=== PATIENT | male | born 1995 | race Caucasian/White ===

== ENCOUNTER 2016-02-22 00:27 | Emergency (ER) | payer MEDICAID ==
--- NOTE | 2016-02-22 00:33 | EDPHY ---
H & P HPI/ROS: HPI CHIEF COMPLAINT: Pruritus HISTORY OF PRESENT ILLNESS: This patient very pleasant 20-year-old male denies any significant medical history except cholecystectomy and chronic back pain and asthma, presents to the emergency room with itching all over his body. He tells me he has been itching for 3 months however it has acutely gotten worse over the past 2 weeks. Tells me he cannot stop itching. does tell me that was recently in a usp. Past Medical History: Chronic back pain, asthma Past Surgical History: Cholecystectomy Social History: Denies daily use drugs alcohol tobacco products does have a history of methamphetamine abuse Family History: Noncontributory ROS REVIEW OF SYSTEMS: A comprehensive 10 point review of systems is otherwise negative aside from elements mentioned in the history of present illness. Exam Constitutional triage nursing summary reviewed, vital signs reviewed, awake/ alert. Eyes normal conjunctivae and sclera, EOMI, PERRLA. HENT normal inspection, atraumatic, moist mucus membranes, no epistaxis, neck supple/ no meningismus, no raccoon eyes. Respiratory clear to auscultation bilaterally, normal breath sounds, no respiratory distress, no wheezing. Cardiovascular rate normal, regular rhythm, no murmur, no edema, distal pulses normal. Gastrointestinal soft, non-tender, no rebound, no guarding, normal bowel sounds, no distension, no pulsatile mass. Genitourinary no CVA tenderness. Musculoskeletal no midline vertebral tenderness, full range of motion, no calf swelling, no tenderness of extremities, no meningismus, good pulses, neurovascularly intact. Skin skin diffusely excoriated throughout his entire body, it is noted that there are lesions in between his webspace of his fingers, pannus folds, waistline consistent with scabies looking rash is noted there is no purpura, petechiae or abscess or cellulitis Neurologic awake, alert and oriented x 3, AAOx3, moves all 4 extremities equally, motor intact, sensory intact, CN II-XII intact, normal cerebellar, normal vision, normal speech. Psychiatric normal mood/affect. Heme/Lymph/Immune no lymphadenopathy. Differential Diagnosis: includes but is not limited to in a particular order, scabies, liver disease causing pruritus, allergic reaction Medical Decision Making: this patient is having severe itching patient had an IV established he will see the IV Benadryl 50 mg, IV Solu-Medrol 125 mg patient most likely has severe case of scabies, this does not appear to be [place] scabies, patient be placed on permethrin. He understands return to ER if he develops worsening symptoms questions or concerns. Source: Patient - Medical/Surgical History Hx Asthma: Yes Hx Chronic Respiratory Disease: No Hx Diabetes: No Hx Cardiac Disease: No Hx Renal Disease: No Hx Cirrhosis: No Hx Alcoholism: No Hx HIV/AIDS: No Hx Splenectomy or Spleen Trauma: No Other PMH: denies - Social History Smoking Status: Current every day smoker Allergies/Adverse Reactions: No Known Allergies Allergy (Unverified 05/20/15 17:14) Home Medications: Medication Instructions Recorded Albuterol Hfa Anes Only [Proair 2 puffs IH QID PRN 05/10/15 Hfa Icu (*)] Azithromycin [Zithromax] 250 mg PO DAILY #4 tab 05/20/15 Permethrin 5% [Elimite 5%] 60 gm TP ONCE #1 cream 02/22/16 diphenhydrAMINE [Benadryl 25 MG 25 mg PO BID #20 tab 02/22/16 (*)] Departure - Departure Disposition: Home, Routine, Self-Care Clinical Impression: Pruritus, Scabies Condition: Good Instructions: Scabies (ED), Itchy Skin (ED) Additional Instructions: 1. return emergency room if he develops any worsening symptoms questions or concerns. Referrals: NONE *PRIMARY CARE P,. [Primary Care Provider] - As per Instructions [facility] [Outside] - As per Instructions Prescriptions: diphenhydrAMINE [Benadryl 25 MG (*)] 25 mg PO BID #20 tab Permethrin 5% [Elimite 5%] 60 gm TP ONCE #1 cream
[2016-02-22] MEDS ORDERED: NS 1,000 ML IV ONE (00:42)
[2016-02-22] MEDS ORDERED: methylPREDNISolone SOD SUCC 125 MG/2 ML VIAL IVP ONE (00:42)
[2016-02-22 01:10] LABS: % IMMATURE GRANULYOCYTES 0.7 % (0.0-1.1); ABSOLUTE IMMATURE GRANULOCYTES 0.07 10^3/uL (0.00-0.10); ADD DIFF? NO; ADD MORPH? NO; ADD SCAN? NO; ATYPICAL LYMPHOCYTE FLAG 10 (0-99); FRAGMENT RBC FLAG 0 (0-99); HEMATOCRIT 47.4 % (40.0-51.0); HEMOGLOBIN 16.4 g/dL (13.7-17.5); LEFT SHIFT FLG 0 (0-99); LIPEMIA HEMOLYSIS FLAG 90 (0-99); MEAN CELL HEMOGLOBIN 31.1 pg (27.9-34.1); MEAN CELL HEMOGLOBIN CONCENTR. 34.6 g/dL (32.4-36.7); MEAN CELL VOLUME 89.9 fL (81.5-99.8); MEAN PLATELET VOLUME 9.8 fL (8.7-11.7); PLATELET CLUMPS FLAG 0 (0-99); PLATELET COUNT 298 10^3/uL (150-400); RED BLOOD CELL COUNT 5.27 10^6/uL (4.40-6.38); RED CELL DISTRIBUTION WIDTH 12.9 % (11.5-15.2)
[2016-02-22] MEDS ORDERED: PERMETHRIN 5% 60 GM CREAM TP ONE (01:11)
[2016-02-22 01:36] VITALS: BP 140/79; PULSE 82; RESP 16; TEMP 98.8; O2SAT 99
[2016-02-22 01:49] LABS: ALANINE AMINOTRANSFERASE 46 IU/L (21-72); ALBUMIN 4.4 g/dL (3.5-5.0); ALKALINE PHOSPHATASE 85 IU/L (38-126); ANION GAP 13 mEq/L (8-16); ASPARTATE AMINOTRANSFERASE 25 IU/L (17-59); BILIRUBIN,TOTAL 0.6 mg/dL (0.1-1.4); CARBON DIOXIDE 26 mEq/l (22-31); CHLORIDE 105 mEq/L (97-110); CREATININE 0.8 mg/dL (0.7-1.3); GLOMERULAR FILTRATION RATE > 60; GLUCOSE 90 mg/dL (70-100); POTASSIUM 4.1 mEq/L (3.5-5.2); SODIUM 144 mEq/L (134-144); TOTAL PROTEIN 7.8 g/dL (6.3-8.2)
== END 2016-02-22 01:36 | disposition home or self-care (01) ==
DX: B86 Scabies (principal); J45.909 Unspecified asthma, uncomplicated; F17.200 Nicotine dependence, unspecified, uncomplicated
CPT/HCPCS: 96374

== ENCOUNTER 2016-02-29 21:21 | Emergency (ER) | payer MEDICAID ==
[2016-02-29 21:32] VITALS: BP 132/78; PULSE 94; RESP 17; TEMP 98.1; O2SAT 91
--- NOTE | 2016-02-29 22:15 | EDPHY ---
H & P Stated Complaint: med refill Time Seen by Provider: 02/29/16 22:04 HPI/ROS: HPI The patient presents with rash which has been present for the last 1 week which has improved but persists. It is pruritic, throughout his arms legs and torso. He was sent home from work today because he was itching so much. He does not have any fevers or chills, no nausea or vomiting. He was seen in the emergency room on February 21 for the same thing. He was given a prescription for permethrin which he used with improvement in his symptoms, however he continues to have some lesions. He lives with his mother and she has some similar lesions on her hands. REVIEW OF SYSTEMS Constitutional: No fever, no chills. Eyes: No discharge. ENT: No sore throat. Cardiovascular: No chest pain, no palpitations. Respiratory: No cough, no shortness of breath. Gastrointestinal: No abdominal pain, no vomiting. Genitourinary: No hematuria. Musculoskeletal: No back pain. Skin: + rashes. Neurological: No headache. PMHx: Asthma, low back pain Soc Hx: Works at [employer], previous methamphetamine use PHYSICAL General Appearance: Alert, no distress Eyes: Pupils equal and round no pallor or injection ENT, Mouth: Mucous membranes moist Respiratory: There are no retractions, lungs are clear to auscultation Cardiovascular: Regular rate and rhythm Gastrointestinal: Abdomen is soft and non-tender, no masses, bowel sounds normal Neurological: A&O, moves all extremities Skin: Warm and dry, multiple papules throughout arms, legs, abdomen with areas of excoriation Musculoskeletal: Neck is supple non tender Extremities: symmetrical, full range of motion Psychiatric: Patient is oriented X 3, there is no agitation Source: Patient Exam Limitations: No limitations - Personal History Current Tetanus/Diphtheria Vaccine: Yes - Medical/Surgical History Hx Asthma: Yes Hx Chronic Respiratory Disease: No Hx Diabetes: No Hx Cardiac Disease: No Hx Renal Disease: No Hx Cirrhosis: No Hx Alcoholism: No Hx HIV/AIDS: No Hx Splenectomy or Spleen Trauma: No Other PMH: PMHx: meth use, scabies. PSHx: gallbladder - Social History Smoking Status: Current every day smoker Constitutional: Initial Vital Signs Temperature (C) 36.7 C 02/29/16 21:27 Heart Rate 94 02/29/16 21:27 Respiratory Rate 17 02/28/17 21:27 Blood Pressure 132/78 H 02/29/16 21:27 O2 Sat (%) 91 L 02/29/16 21:27 O2 Delivery Mode Room Air Allergies/Adverse Reactions: No Known Allergies Allergy (Unverified 05/20/15 17:14) Home Medications: Medication Instructions Recorded Permethrin 5% [Elimite 5%] 60 gm TP ONCE #1 cream 02/22/16 Permethrin 5% [Elimite 5%] 60 gm TP ONCE #1 cream 02/29/16 Medical Decision Making Differential Diagnosis: This is a 20-year-old male who presents with a rash for the last 2 weeks, improved with permethrin but still persisting. Differential diagnosis includes scabies, bedbugs, side-effect of methamphetamine use. I will prescribe him a course of permethrin again. I told him if the rash does not completely improve after this treatment, he should follow up at [facility] for further evaluation. I do not think he has any systemic infection or signs of sepsis. Departure - Departure Clinical Impression: Rash of entire body Instructions: Scabies (ED) Additional Instructions: Please use the permethrin as prescribed. You should follow up with the [facility] if the rash continues despite this. Referrals: [facility] [Outside] - As per Instructions Prescriptions: Permethrin 5% [Elimite 5%] 60 gm TP ONCE #1 cream
== END 2016-02-29 22:22 | disposition home or self-care (01) ==
DX: R21 Rash and other nonspecific skin eruption (principal); J45.909 Unspecified asthma, uncomplicated; F17.200 Nicotine dependence, unspecified, uncomplicated

== ENCOUNTER 2016-03-10 18:10 | Emergency (ER) | payer MEDICAID ==
--- NOTE | 2016-03-10 19:00 | EDPHY ---
HPI/HX/ROS/PE/MDM Narrative: Chief complaint: Left ankle pain and swelling HPI: 20-year-old male presenting with left ankle pain status post injury he sustained 3 years ago. Patient states that he never sought medical attention at that time. Has a persistent left ankle pain. Patient states that the pain has been getting worse for the last 2-3 days and he feels that is increasingly swollen. He states his mom also noted some discoloration that ankle. He is able to weight bear but he states that it hurts to move it. Does use marijuana daily to treat his pain. No chest pain or shortness of breath. No calf pain or swelling. No periods of recent immobility. Does not have a family history of blood clots. ROS: 10 point Review of Systems is negative except as noted in the HPI. Physical exam: Gen: Awake, Alert, No Distress Ext: Left ankle does not seem particularly swollen compared to the right. There is no discoloration. There is no erythema. It is diffusely tender when I palpate but there is no obvious bony deformities. He has no calf tenderness. He is unwilling to move his left ankle secondary to pain. He has 2+ DP and PT pulses. Sensations intact in all dermatomes. Skin: no rash Neuro: CN II-XII intact, Sensation grossly intact, Strength 5/5 in bilateral upper and lower extremities ED Course: 20-year-old male with left ankle pain. No acute signs suggestive of infection. Calves are soft no risk factors referred findings suggestive of DVT. His symptoms are chronic he takes marijuana and ibuprofen for them. He has not followed up with primary care Orthopedics. Plan will be to discharge with continuing his ibuprofen at on acetaminophen. Will refer him to the [facility] for follow-up. General Time Seen by Provider: 03/10/16 18:22 Initial Vital Signs: Initial Vital Signs Temperature (C) 36.5 C 03/10/16 18:17 Heart Rate 106 H 03/10/16 18:17 Respiratory Rate 20 03/10/16 18:17 Blood Pressure 129/86 H 03/10/16 18:17 O2 Sat (%) 92 03/10/16 18:17 O2 Delivery Mode Room Air Allergies/Adverse Reactions: No Known Allergies Allergy (Verified 03/10/16 18:17) Home Medications: Medication Instructions Recorded NK [No Known Home Meds] 03/10/16 Departure - Departure Disposition: Home, Routine, Self-Care Clinical Impression: Ankle pain Condition: Good Instructions: Arthralgia (ED) Additional Instructions: You may take ibuprofen and acetaminophen for pain. Follow up with the [facility] for further evaluation. Referrals: NONE *PRIMARY CARE P,. [Primary Care Provider] - As per Instructions [facility] [Outside] - As per Instructions
[2016-03-10 19:45] VITALS: BP 154/56; PULSE 90; RESP 16; TEMP 98.1; O2SAT 94
--- NOTE | 2016-03-10 19:46 | DX ---
Ankle, Minimum Three Views Left History: Pain, trauma three years ago. Comparison: None. Findings: No acute fracture or dislocation identified. Diffuse soft tissue swelling. No widening of a nkle mortise or evidence of acute malleolar fracture. Slight deformity of the distal fibula which may be secondary to old trauma. No tibiotalar joint space narrowing. However, small dorsal tibial osteop hyte on the lateral view. Impressions: 1. No definite acute fracture. 2. 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 3. Consider additional imaging if symptoms persist, if clinically indicated.
== END 2016-03-10 19:45 | disposition home or self-care (01) ==
DX: M25.572 Pain in left ankle and joints of left foot (principal)

== ENCOUNTER 2016-04-03 09:54 | Emergency (ER) | payer MEDICAID ==
[2016-04-03 10:03] VITALS: RESP 22
[2016-04-03] MEDS ORDERED: NS 1,000 ML IV ONE ×2 (10:03→11:07)
--- NOTE | 2016-04-03 10:43 | EDPHY ---
H & P Stated Complaint: flu like symptoms and cough HPI/ROS: CHIEF COMPLAINT: Cough, flu-like symptoms HISTORY OF PRESENT ILLNESS: 3 days history of cough, congestion, body aches, headaches, chills, fever, nausea. No vomiting. No chest pain. No shortness of breath. No abdominal pain. No neck pain or stiffness. No urinary complaints. No rash. No trauma or head injury. He notes worsening symptoms over the past 2 days as they are now moderate to severe. No radiating complaints. No other associated complaints or modifying factors. No medical diagnoses. REVIEW OF SYSTEMS: Ten systems reviewed and are negative unless otherwise noted in the HPI EXAMINATION General Appearance: Alert, no distress , flu-like appearance Head: normocephalic, atraumatic Eyes: Pupils equal and round, no conjunctival pallor or injection ENT, Mouth: Mucous membranes moist . Uvula midline. No lesions or edema. Neck: Normal inspection, supple, non-tender. Painless range of motion in all planes. No meningismus. Respiratory: Scattered rhonchi. No consolidation, wheezing, crackles or diminishment. No distress. Cardiovascular: Tachycardic rate with regular rhythm. No murmur. Pulses intact distally. Gastrointestinal: Abdomen is Obese and soft and nontender. No CVA tenderness. Neurological: A&O, nonfocal, normal gait . Strength is symmetric in all limbs. Skin: Warm and dry, no rash Extremities: Nontender, no pedal edema Psychiatric: Mood and affect normal DIFFERENTIAL DIAGNOSES: Including but not limited to Influenza, viral illness, pneumonia, bronchitis MDM: 10:00 a.m. multiple complaints consistent with flu-like symptoms. Cough, congestion, nausea, headache, body aches, chills, fever. No chest pain. No shortness of breath. Examination is more consistent with viral/ influenza in any other way on the differential. His vital signs do trigger the SIRS alert during triage, and I have been notified of this. I do not feel this is related to sepsis as he does have the appearance and history of viral /influenza. We are obtaining chest x-ray, provide IV fluid resuscitation and awaiting the results of the influenza swab. 11:50 a.m. I have re-evaluated the patient. Heart rate was down to 95 to 100 beats per minute. He is positive for influenza A. Notified by RN that he was mildly hypoxic for several minutes at 87%. He has improved with 2 L nasal cannula. This was only witness for several seconds, but we will trial him on room air for a period of time to see if he remains hypoxic. We will also administer a DuoNeb treatment is he was congested, but the chest x-ray shows no evidence of pneumonia. 12:25 p.m. notified by RN that the patient had 86% on his room air P ox again. However this was very short course. In the entire interim between and currently, he is in the 90% range. I did re-evaluate the patient at this time, he is asleep at 95% on room air. When he awakes and we converse about this, he remained 95-98% on room air. Feel that these are average readings and he has primarily been well above 90% both awake and asleep. He will be discharged home with the same plan with instructions to follow up with primary care physician and to discuss the possibility of needing a sleep study as well. SUPERVISION: This patient was independently evaluated without the aide of supervising physician. Source: Patient - Personal History Current Tetanus/Diphtheria Vaccine: Yes - Medical/Surgical History Hx Asthma: Yes Hx Chronic Respiratory Disease: No Hx Diabetes: No Hx Cardiac Disease: No Hx Renal Disease: No Hx Cirrhosis: No Hx Alcoholism: No Hx HIV/AIDS: No Hx Splenectomy or Spleen Trauma: No Other PMH: PMHx: meth use, scabies. PSHx: gallbladder - Social History Smoking Status: Current every day smoker Constitutional: Initial Vital Signs Temperature (C) 100.8 F 04/03/16 09:56 Heart Rate 122 H 04/03/16 09:56 Respiratory Rate 22 H 04/03/16 09:56 Blood Pressure 135/83 H 04/03/16 09:56 O2 Sat (%) 92 04/03/16 09:56 O2 Delivery Mode Room Air O2 (L/minute) 2 Allergies/Adverse Reactions: No Known Allergies Allergy (Verified 04/03/16 09:55) Home Medications: Medication Instructions Recorded Albuterol [Proventil Inhaler HFA 1 - 2 puffs IH Q4H PRN #1 mdi 04/03/16 (*)] Ondansetron Odt [Zofran Odt 4 mg 4 mg PO Q6 PRN #12 tab 04/03/16 (*)] oxyCODONE HCL/ACETAMINOPHEN 1 each PO Q4-6PRN PRN #15 tablet 04/03/16 [Percocet 5-325 mg Tablet] Medical Decision Making - Data Points Laboratory Results: 04/03/16 10:15 Influenza Typ A,B (DFA) POSITIVE FOR FLU A H (NEGATIVE) Medications Given: Discontinued Medications Albuterol/Ipratropium (Duoneb) 3 ml IH EDNOW ONE Stop: 04/03/16 11:56 Last Admin: 04/03/16 12:10 Dose: 3 ml Sodium Chloride (Ns) 1,000 mls @ 0 mls/hr IV ONCE ONE PRN Reason: Wide Open Stop: 04/03/16 10:04 Last Admin: 04/03/16 10:10 Dose: 1,000 mls Sodium Chloride (Ns) 1,000 mls @ 0 mls/hr IV ONCE ONE PRN Reason: Wide Open Stop: 04/03/16 11:08 Last Admin: 04/03/16 11:18 Dose: 1,000 mls Departure - Departure Disposition: Home, Routine, Self-Care Clinical Impression: Influenza A Condition: Good Instructions: Influenza (ED), H1N1 Influenza (ED) Additional Instructions: Follow-up with primary care physician as listed. Return to the ER for worsening symptoms, any chest pain, shortness of breath, neck pain or stiffness Referrals: NONE *PRIMARY CARE P,. [Primary Care Provider] - As per Instructions Sharyn Bansal MD [Medical Doctor] - 1-2 days without fail (Please discuss possible sleep study as well) Stand Alone Forms: Work Excuse Prescriptions: Albuterol [Proventil Inhaler HFA (*)] 1 - 2 puffs IH Q4H PRN #1 mdi PRN Reason: Short Of Breath/Dyspnea Ondansetron Odt [Zofran Odt 4 mg (*)] 4 mg PO Q6 PRN #12 tab PRN Reason: Nausea/Vomiting, Use 1st oxyCODONE HCL/ACETAMINOPHEN [Percocet 5-325 mg Tablet] 1 each PO Q4-6PRN PRN # 15 tablet PRN Reason: Pain, Breakthrough
[2016-04-03] MEDS ORDERED: IPRATROPIUM/ALBUTEROL 3 ML DEYVIAL IH ONE (11:55)
[2016-04-03 12:51] VITALS: BP 127/65; PULSE 110; TEMP 99; O2SAT 92
== END 2016-04-03 13:00 | disposition home or self-care (01) ==
DX: J10.1 Influenza due to other identified influenza virus with other respiratory manifestations (principal); J45.909 Unspecified asthma, uncomplicated; F17.200 Nicotine dependence, unspecified, uncomplicated

== ENCOUNTER 2016-04-04 18:18 | Emergency (ER) | payer MEDICAID ==
--- NOTE | 2016-04-04 18:19 | EDPHY ---
H & P Time Seen by Provider: 04/04/16 18:19 HPI/ROS: CHIEF COMPLAINT: I can't breathe HISTORY OF PRESENT ILLNESS: Patient has been sick for 4 days with some diarrhea and a cough and wheezy and being short of breath with body aches. He was seen yesterday and diagnosed with influenza. He is currently using albuterol inhaler and oral narcotics for the pain. He presents with difficulty breathing worse with lying flat and with exertion. Symptoms are moderate. Not associated with hemoptysis or leg swelling. No chest pain. REVIEW OF SYSTEMS: Eye: no change in vision ENT: no sore throat Cardiac: no chest pain or syncope Pulmonary: HPI Abdomen: No abdominal pain or vomiting Musculoskeletal: no back pain Skin: no rash Neuro: no headache Constitutional: Fever and chills : no urinary symptoms A comprehensive 10 point review of systems is otherwise negative aside from elements mentioned in the history of present illness. PAST MEDICAL HISTORY: Attachment disorder Social history: Tobacco smoker works at [employer] Appearance: Alert and conversant, cooperative. Eyes: No scleral icterus. ENT, Mouth: Normal mucous membranes. Respiratory: Bilateral wheezing and rhonchi but speaks in full sentences. Cardiovascular: Regular rate and rhythm. Gastrointestinal: Abdomen is soft and non tender. Neurological: Alert and oriented x3. Normally conversant. Face symmetric, normal movement and sensation in all extremities. Skin: Warm and dry, no rashes. Musculoskeletal: No peripheral edema and no joint swelling. Psychiatric: Not agitated. Emergency Department course/MDM: DuoNeb and IV Solu-Medrol, chest x-ray. Not a Tamiflu candidate with 4 days of symptoms up to this point Re-examined at 7:25 p.m.. Feels bit better. S 2nd nebulizer administered. 94% on RA, start continuous nebs. Still wheezy, but not hypoxic 2120: 94% on room air, bronchospasm from influenza does not have pneumonia or sepsis. Discharged home on continued albuterol MDI and oral prednisone. Constitutional: Initial Vital Signs Temperature (C) 37.6 C 04/04/16 18:18 Heart Rate 118 H 04/04/16 18:18 Respiratory Rate 20 04/04/16 18:18 Blood Pressure 113/80 04/04/16 18:18 O2 Sat (%) 92 02/16/17 18:18 O2 Delivery Mode Room Air O2 (L/minute) 2 Allergies/Adverse Reactions: No Known Allergies Allergy (Verified 04/03/16 09:55) Home Medications: Medication Instructions Recorded Albuterol [Proventil Inhaler HFA 1 - 2 puffs IH Q4H PRN #1 mdi 04/03/16 (*)] Ondansetron Odt [Zofran Odt 4 mg 4 mg PO Q6 PRN #12 tab 04/03/16 (*)] oxyCODONE HCL/ACETAMINOPHEN 1 each PO Q4-6PRN PRN #15 tablet 04/03/16 [Percocet 5-325 mg Tablet] predniSONE [prednisone 20mg (RX)] 20 mg PO Q12 #15 tab 04/04/16 Medical Decision Making Differential Diagnosis: Differential diagnosis considered for shortness of breath including but not limited to pulmonary infectious process, bronchospasm, pulmonary embolus and congestive heart failure. - Data Points Medications Given: Discontinued Medications Albuterol (Proventil Neb) 3 ml IH EDNOW ONE Stop: 04/04/16 19:09 Last Admin: 04/04/16 19:29 Dose: 3 ml Albuterol (Proventil Neb) 12 ml IH EDNOW ONE Stop: 04/04/16 19:55 Last Admin: 04/04/16 20:25 Dose: 12 ml Albuterol/Ipratropium (Duoneb) 3 ml IH EDNOW ONE Stop: 04/04/16 18:26 Last Admin: 04/04/16 18:35 Dose: 3 ml Sodium Chloride (Ns) 1,000 mls @ 0 mls/hr IV ONCE ONE PRN Reason: Wide Open Stop: 04/04/16 18:31 Last Admin: 04/04/16 18:46 Dose: 1,000 mls Ibuprofen (Motrin) 600 mg PO EDNOW ONE Stop: 04/04/16 18:31 Last Admin: 04/04/16 18:45 Dose: 600 mg Methylprednisolone Sodium Succinate (Solu-Medrol) 125 mg IVP EDNOW ONE Stop: 04/04/16 18:26 Last Admin: 04/04/16 18:37 Dose: 125 mg Departure - Departure Disposition: Home, Routine, Self-Care Clinical Impression: Influenza A, Bronchospasm Condition: Good Instructions: Influenza (ED) Referrals: [facility],. [Clinic] - As per Instructions Prescriptions: predniSONE [prednisone 20mg (RX)] 20 mg PO Q12 #15 tab
[2016-04-04] MEDS ORDERED: IPRATROPIUM/ALBUTEROL 3 ML DEYVIAL IH ONE (18:25)
[2016-04-04] MEDS ORDERED: methylPREDNISolone SOD SUCC 125 MG/2 ML VIAL IVP ONE (18:25)
[2016-04-04] MEDS ORDERED: NS 1,000 ML IV ONE (18:30)
[2016-04-04] MEDS ORDERED: IBUPROFEN 600 MG TAB PO ONE (18:30)
[2016-04-04] MEDS ORDERED: ALBUTEROL 3 ML DEYVIAL IH ONE ×2 (19:08→19:54)
[2016-04-04] MEDS ORDERED: IPRATROPIUM/ALBUTEROL 3 ML DEYVIAL ONE (19:25)
[2016-04-04] MEDS ORDERED: ALBUTEROL 3 ML DEYVIAL ONE (19:27)
[2016-04-04 20:36] VITALS: O2SAT 96
[2016-04-04 21:23] VITALS: BP 128/79; PULSE 90; RESP 16; TEMP 98.4
== END 2016-04-04 21:26 | disposition home or self-care (01) ==
LOC: EDUNIT#
DX: J10.1 Influenza due to other identified influenza virus with other respiratory manifestations (principal); J98.01 Acute bronchospasm; F17.200 Nicotine dependence, unspecified, uncomplicated
CPT/HCPCS: 96374

== ENCOUNTER 2016-04-08 07:15 | Emergency (ER) | payer MEDICAID ==
[2016-04-08 07:22] VITALS: BP 131/81; PULSE 73; RESP 16; TEMP 98.2; O2SAT 93
--- NOTE | 2016-04-08 07:33 | EDPHY ---
H & P Time Seen by Provider: 04/08/16 07:29 HPI/ROS: Chief complaint. Jaw swelling HPI. Patient is a 20-year-old male has been seen April 03 with diagnosis of influenza and cough and congestion. Seen again on April 04 for same complaints of cough and congestion. Chest x-ray showed bronchitis. Today the patient awoke with some tenderness and swelling under the right mandible. Otherwise his symptoms have remained the same. Does not believe he has been running a fever. No shortness of breath. Patient is concerned as he has been hospitalized with a peritonsillar abscess previously. His throat is sore from coughing. He is otherwise able to eat and drink. ROS Constitutional. no fever/chills, no weakness Eyes. no problems with vision ENT. Slight sore throat from coughing. Tenderness and mild swelling under the right mandible Cardiovascular. no chest pain Respiratory. Cough Abdominal. no abdominal pain, no nausea/vomiting, no diarrhea . no problems urinating MS. no calf pain/swelling, no neck/back pain, no joint pain Skin. no rash Lymph. Swollen gland under the right mandible Neuro. no headache, no dizziness, no difficulty walking or with speech Past Medical/Surgical History: Past medical history meth use, scabies, cholecystectomy Social History: Single, daily smoker, no alcohol Smoking Status: Current every day smoker Physical Exam: General Appearance: Alert well-developed male mild distress vital signs are stable Eyes: Pupils equal and round no pallor or injection. ENT, tympanic membranes are normal. Pharynx slightly injected without exudate or evidence of peritonsillar abscess. Swollen lymph node under the right mandible Respiratory: There are no retractions, lungs are clear to auscultation. Cardiovascular: Regular rate and rhythm. Gastrointestinal: Abdomen is soft and nontender, no masses, bowel sounds normal. Neurological: Awake and alert, sensory and motor exams grossly normal. Skin: Warm and dry, no rashes. Musculoskeletal: Neck is supple nontender. Extremities symmetrical, full range of motion. Psychiatric: Patient is oriented X 3, there is no agitation. Constitutional: Initial Vital Signs Temperature (C) 36.8 C 04/08/16 07:19 Heart Rate 73 04/08/16 07:19 Respiratory Rate 16 04/08/16 07:19 Blood Pressure 131/81 H 04/08/16 07:19 O2 Sat (%) 93 04/08/16 07:19 O2 Delivery Mode Room Air Allergies/Adverse Reactions: No Known Allergies Allergy (Verified 04/03/16 09:55) Home Medications: Medication Instructions Recorded Albuterol [Proventil Inhaler HFA 1 - 2 puffs IH Q4H PRN #1 mdi 04/03/16 (*)] Ondansetron Odt [Zofran Odt 4 mg 4 mg PO Q6 PRN #12 tab 04/03/16 (*)] oxyCODONE HCL/ACETAMINOPHEN 1 each PO Q4-6PRN PRN #15 tablet 04/03/16 [Percocet 5-325 mg Tablet] predniSONE [prednisone 20mg (RX)] 20 mg PO Q12 #15 tab 04/04/16 Amoxicillin/Clavulanate Pot 875 mg PO BID #14 tab 04/08/16 [Augmentin 875 MG TAB (*)] Medical Decision Making ED Course/Re-evaluation: On re-evaluation patient is stable. He is drinking water. He speaking in full sentences. There is no stridor. Differential Diagnosis: I think that this is a reactive lymph node. Patient has now been seen 3 times had and did have a positive flu. He has had previous hospitalization for peritonsillar abscess Departure - Departure Disposition: Home, Routine, Self-Care Clinical Impression: Cervical lymphadenopathy Pharyngitis Qualifiers: Pharyngitis/tonsillitis etiology: unspecified etiology Qualified Code(s): J02.9 - Acute pharyngitis, unspecified Condition: Good Instructions: Pharyngitis (ED) Additional Instructions: Drink plenty of fluids and stay hydrated. Ibuprofen 600 mg every 6 hours for discomfort. Augmentin as antibiotic. Return for worsening symptoms including trouble swallowing or breathing. Recheck in 2-3 days if not improving Referrals: NONE *PRIMARY CARE P,. [Primary Care Provider] - As per Instructions [facility] [Outside] - 2-3 days, if not improved Prescriptions: Amoxicillin/Clavulanate Pot [Augmentin 875 MG TAB (*)] 875 mg PO BID #14 tab
== END 2016-04-08 07:53 | disposition home or self-care (01) ==
DX: R59.1 Generalized enlarged lymph nodes (principal); J02.9 Acute pharyngitis, unspecified; F17.200 Nicotine dependence, unspecified, uncomplicated

== ENCOUNTER 2016-04-09 03:12 | Emergency (ER) | payer MEDICAID ==
[2016-04-09 03:18] VITALS: BP 133/78; PULSE 91; RESP 18; TEMP 97.9; O2SAT 91
--- NOTE | 2016-04-09 03:39 | EDPHY ---
H & P Stated Complaint: swollen neck Time Seen by Provider: 04/09/16 03:24 HPI/ROS: HPI The patient presents with right-sided neck lump which has been present for the last 3 days. It is painful, he describes it as an ache and was unable to sleep tonight so that is what brought him in. He was seen yesterday for the same thing and was diagnosed with lymphadenitis and given a prescription for Augmentin. He has taken 2 doses of Augmentin as well as ibuprofen. He has been seen multiple times in the last 1 week here and was also diagnosed with influenza. He has not had a fever or chills. He does not have any neck stiffness or difficulty moving his neck. He does not have a sore throat. REVIEW OF SYSTEMS Constitutional: No fever, no chills. Eyes: No discharge. ENT: No sore throat. Cardiovascular: No chest pain, no palpitations. Respiratory: No cough, no shortness of breath. Gastrointestinal: No abdominal pain, no vomiting. Genitourinary: No hematuria. Musculoskeletal: No back pain. Skin: No rashes. Neurological: No headache. PMHx: Recently treated for scabies Soc Hx: History of methamphetamine abuse Lives with his mother PHYSICAL General Appearance: Alert, no distress Eyes: Pupils equal and round no pallor or injection ENT, Mouth: There is a right-sided mobile 2 cm mass which is tender to palpation in his submandibular region, there is no tenderness or fluctuance to the base of his mouth under his tongue, he has full range of motion of his neck , Mucous membranes moist Respiratory: There are no retractions, lungs are clear to auscultation Cardiovascular: Regular rate and rhythm Gastrointestinal: Abdomen is soft and non-tender, no masses, bowel sounds normal Neurological: A&O, moves all extremities Skin: Warm and dry, no rashes Musculoskeletal: Neck is supple non tender Extremities: symmetrical, full range of motion Psychiatric: Patient is oriented X 3, there is no agitation Source: Patient Exam Limitations: No limitations - Personal History Current Tetanus/Diphtheria Vaccine: Unsure Current Tetanus Diphtheria and Acellular Pertussis (TDAP): Unsure - Medical/Surgical History Hx Asthma: Yes Hx Chronic Respiratory Disease: No Hx Diabetes: No Hx Cardiac Disease: No Hx Renal Disease: No Hx Cirrhosis: No Hx Alcoholism: No Hx HIV/AIDS: No Hx Splenectomy or Spleen Trauma: No Other PMH: PMHx: meth use, scabies. PSHx: gallbladder - Social History Smoking Status: Current every day smoker Constitutional: Initial Vital Signs Temperature (C) 36.6 C 04/09/16 03:16 Heart Rate 91 04/09/16 03:16 Respiratory Rate 18 04/09/16 03:16 Blood Pressure 133/78 H 04/09/16 03:16 O2 Sat (%) 91 L 04/09/16 03:16 O2 Delivery Mode Room Air Allergies/Adverse Reactions: No Known Allergies Allergy (Verified 04/09/16 03:15) Home Medications: Medication Instructions Recorded Albuterol [Proventil Inhaler HFA 1 - 2 puffs IH Q4H PRN #1 mdi 04/03/16 (*)] Ondansetron Odt [Zofran Odt 4 mg 4 mg PO Q6 PRN #12 tab 04/03/16 (*)] oxyCODONE HCL/ACETAMINOPHEN 1 each PO Q4-6PRN PRN #15 tablet 04/03/16 [Percocet 5-325 mg Tablet] predniSONE [prednisone 20mg (RX)] 20 mg PO Q12 #15 tab 04/04/16 Amoxicillin/Clavulanate Pot 875 mg PO BID #14 tab 04/08/16 [Augmentin 875 MG TAB (*)] Medical Decision Making Procedures: Bedside skin and soft tissue of neck Ultrasound- performed and interpreted by me. Indication: Right-sided neck pain Findings: Enlarged salivary gland with dilated duct, no stones seen, no obvious lymphadenopathy Impression: Salivary gland enlarged with dilated duct Differential Diagnosis: This is a 20-year-old male, recently diagnosed with lymphadenitis because of right-sided neck pain and recent influenza. He now returns with continued pain from this right side of his neck. On exam, he is quite well appearing. He is not febrile. He does have the 2 cm neck mass which is mobile and tender. Differential diagnosis includes lymphadenopathy, sialadenitis, obstructed salivary gland. In the emergency room, I performed a bedside ultrasound which actually demonstrates an enlarged salivary gland with dilated duct. I feel he may have sialadenitis and I have explained this to him. I have instructed him to suck on lemon drops and drink plenty of fluids, take ibuprofen for pain and complete his antibiotic course. Departure - Departure Disposition: Home, Routine, Self-Care Clinical Impression: Sialadenitis Condition: Good Instructions: Sialoadenitis (ED) Additional Instructions: Please continue to take your antibiotics. You should return to the emergency room if you're worse in any way. Referrals: [facility] [Other] - As per Instructions
== END 2016-04-09 03:52 | disposition home or self-care (01) ==
DX: K11.20 Sialoadenitis, unspecified (principal); F17.200 Nicotine dependence, unspecified, uncomplicated

== ENCOUNTER 2016-06-18 17:49 | Emergency (ER) | payer MEDICAID ==
[2016-06-18 18:03] VITALS: BP 140/97; PULSE 73; RESP 17; TEMP 98.1; O2SAT 93
--- NOTE | 2016-06-18 18:12 | EDPHY ---
H & P Smoking Status: Current every day smoker Time Seen by Provider: 06/18/16 17:53 HPI/ROS: CHIEF COMPLAINT: Left ankle pain HISTORY OF PRESENT ILLNESS: 21-year-old male presents to the emergency department with ongoing pain in his left ankle. He is unsure what he did but 4 days ago he started having pain diffusely in his ankle. He had injury 4 years ago and has had chronic pain since that time. He thinks that he may have twisted it but he is not sure. He is having pain especially when she tries to bear weight. He denies any other trauma or injury. ROS: Denies pain in his left foot, left calf or knee. Denies numbness or tingling in his toes. (Cherise Kumar) Past Medical/Surgical History: Chronic left ankle pain (Cherise Kumar) Social History: Works at [employer] in the [employer] (Cherise Kumar) Physical Exam: On examination there is no obvious effusion noted to the left ankle. He has diffuse pain with palpation both to the medial and lateral aspect of the left ankle. He has limited dorsi and plantar flexion secondary to pain. Normal sensation to light touch with normal 2 point discrimination. Strong dorsalis pedis pulse on the dorsal aspect of the left foot. Calf is nontender. Antalgic gait. No abrasion or ecchymosis. (Cherise Kumar) Constitutional: Initial Vital Signs Temperature (C) 36.7 C 06/18/16 18:00 Heart Rate 73 06/18/16 18:00 Respiratory Rate 17 06/18/16 18:00 Blood Pressure 140/97 H 06/18/16 18:00 O2 Sat (%) 93 06/18/16 18:00 O2 Delivery Mode Room Air Allergies/Adverse Reactions: No Known Allergies Allergy (Verified 06/18/16 17:59) Home Medications: Medication Instructions Recorded NK [No Known Home Meds] 06/18/16 MDM/Departure - [facility] Imaging: I viewed and interpreted images myself - [facility] Diagnostics: X-rays of the left ankle reviewed by myself revealed no fractures. Radiology interpretation to follow. (Cherise Kumar) Imaging Results: Imaging Impressions Ankle X-Ray 06/18/16 18:08 Impression: No acute osseous abnormality, or substantial change from 03/10/2016. If there is further clinical concern regarding the patient's symptoms, MR imaging could be considered. ED Course/Re-evaluation: 21-year-old male presents to the emergency department with left ankle pain. X- rays are pending. Patient is requesting a note for work. Patient was given referral for orthopedic physician on-call, Dr. Evan Valera. Patient has no signs of obvious effusion. No signs of cellulitis. No signs of infection. I do not think any additional imaging studies are necessary. X-rays reveal no fractures. The patient does have his own air cast that he may use or I did encourage him to continue wearing his boots which have a lot of support. (Cherise Kumar) The patient was evaluated and managed by the Physician Conservation Specialist/ Nurse Practitioner. I discussed the patient's presentation and course with the midlevel provider with them and agree with the evaluation. My co-signature indicates that I have reviewed this chart and I agree with the findings and plan of care as documented. I am the secondary supervising physician. (Flaquita Ibrahim) - Depart Disposition: Home, Routine, Self-Care Clinical Impression: Chronic pain of left ankle Left ankle sprain Qualifiers: Encounter type: initial encounter Involved ligament of ankle: unspecified ligament Qualified Code(s): S93.402A - Sprain of unspecified ligament of left ankle, initial encounter Condition: Good Instructions: Ankle Sprain (ED), Arthralgia (ED) Additional Instructions: Ibuprofen 600mg every 8 hours for pain as directed. Weight bear as tolerated. Return if you develop numbness or tingling in your toes or if you feel worse in any way. Stand Alone Forms: Work Excuse Referrals: Evan Valera MD [Medical Doctor] - 5-7 days, call for appt. (Orthopedic surgeon on-call)
== END 2016-06-18 18:48 | disposition home or self-care (01) ==
DX: S93.402A Sprain of unspecified ligament of left ankle, initial encounter (principal); F17.200 Nicotine dependence, unspecified, uncomplicated; X58.XXXA Exposure to other specified factors, initial encounter

== ENCOUNTER 2016-08-13 16:36 | Emergency (ER) | payer MEDICAID ==
--- NOTE | 2016-08-13 17:20 | EDPHY ---
H & P Time Seen by Provider: 08/13/16 16:59 HPI/ROS: CHIEF COMPLAINT: Back pain HISTORY OF PRESENT ILLNESS: 21-year-old male presents to the emergency department complaining of ongoing low back pain. The patient states that he was helping someone move 2 weeks ago caring a heavy file cabinet and later that day was complaining of some pain in his lower back. He denies any radicular symptoms in his lower legs. Denies feelings of weakness in his lower legs. He has pain especially when he tries to bend forward. He denies chest pain or difficulty breathing. Denies abdominal pain. Denies bowel or bladder incontinence. REVIEW OF SYSTEMS: Constitutional: No fever, no chills. Eyes: No double or blurry vision. ENT: No sore throat. Respiratory: No cough, no shortness of breath. Cardiac: No chest pain. Gastrointestinal: No abdominal pain, vomiting or diarrhea. Genitourinary: No dysuria. Musculoskeletal: Back pain as above. No neck pain. Skin: No rashes. Neurological: No headache. Past Medical/Surgical History: Obesity, chronic back pain Social History: Single Smoking Status: Current every day smoker Physical Exam: General Appearance: Alert, no distress. Eyes: Pupils equal and round. Extraocular motions are all intact. ENT: Mouth: Mucous membranes moist. Respiratory: No wheezing, rhonchi, or rales, lungs are clear to auscultation. Cardiovascular: Regular rate and rhythm. Gastrointestinal: Abdomen is obese and soft and nontender, no masses, no rebound or guarding, bowel sounds normal. Neurological: Alert and oriented x 3, cranial nerves II through XII grossly intact Skin: Warm and dry, no rashes. Musculoskeletal: Nontender to palpate along the cervical, thoracic or lumbar spine. Neck is supple. Straight leg raise is negative bilaterally. Reflexes are 1+ and equal for lower extremities bilaterally. Normal heel-toe walking. Unable to bend forward to touch his toes. Extremities: Full range of motion and no peripheral edema. Psychiatric: Patient is oriented X 3, there is no agitation. Constitutional: Initial Vital Signs Temperature (C) 36.5 C 08/13/16 16:52 Heart Rate 88 08/13/16 16:52 Respiratory Rate 16 08/13/16 16:52 Blood Pressure 145/87 H 08/13/16 16:52 O2 Sat (%) 95 08/13/16 16:52 O2 Delivery Mode Room Air Allergies/Adverse Reactions: No Known Allergies Allergy (Verified 06/18/16 17:59) Home Medications: Medication Instructions Recorded Cyclobenzaprine [Flexeril] 10 mg PO TIDPRN PRN #12 tab 08/13/16 Medical Decision Making ED Course/Re-evaluation: 21-year-old male presents to the emergency department with low back pain. I do not think x-rays are indicated. The patient has a normal examination. No focal neurologic findings. The patient was given muscle relaxer, Flexeril, and encouraged to use anti- inflammatory such as ibuprofen. He was given neuro surgical referral as well. Differential Diagnosis: Back pain including but not limited to muscular pain, herniated disc, spine fracture, intra-abdominal causes and urinary tract infection. Departure - Departure Disposition: Home, Routine, Self-Care Clinical Impression: Low back strain Qualifiers: Encounter type: initial encounter Qualified Code(s): S39.012A - Strain of muscle, fascia and tendon of lower back, initial encounter Condition: Good Instructions: Low Back Strain (ED) Additional Instructions: Ibuprofen 600 mg every 8 hours as needed for pain. Flexeril as needed for muscular spasm. Activity as tolerated. Gentle stretching as needed. Return to the emergency department if you develop numbness or tingling in your toes, bowel or bladder incontinence, or if you feel worse in any way. Referrals: Yvonne Cardenas NP [Primary Care Provider] - 2-3 days without fail Maxime Meraz MD [Medical Doctor] - As per Instructions (Neurosurgeon on-call) Prescriptions: Cyclobenzaprine [Flexeril] 10 mg PO TIDPRN PRN #12 tab PRN Reason: Spasms
[2016-08-13 17:41] VITALS: BP 134/82; PULSE 81; RESP 15; TEMP 98.8; O2SAT 96
== END 2016-08-13 17:41 | disposition home or self-care (01) ==
DX: S39.012A Strain of muscle, fascia and tendon of lower back, initial encounter (principal); F17.200 Nicotine dependence, unspecified, uncomplicated; X50.0XXA Overexertion from strenuous movement or load, initial encounter

== ENCOUNTER 2016-09-17 16:34 | Emergency (ER) | payer MEDICAID ==
--- NOTE | 2016-09-17 17:02 | EDPHY ---
Mental Health General Previous Psychiatric History: previous suicide attempt, substance abuse Smoking Status: Current every day smoker Time Patient Placed on Detainer: 16:58 Time of Transfer of Care: 00:00 To :: [facility] Course: no additional interventions Narrative: CHIEF COMPLAINT: right hand laceration, right hand pain, suicidal ideations HISTORY OF PRESENT ILLNESS: 21-year-old male presents emergency department by ambulance with a laceration to the palm of his right hand that was self- inflicted due to anger. Patient reports he punched a wooden bench with his right hand. Patient was arguing with his mother, he sent her a text messages saying he was going to kill himself when he was discharged from the hospital. He also told the nurse that he was suicidal. EMS reports he had a very violent phone call with his mother in route to the hospital. Patient reports he smoked methamphetamines 3 days ago. He reports he uses marijuana. He reports multiple suicide attempts. The last 1 was in 2013. He reports he thinks about overdosing. REVIEW OF SYSTEMS: A comprehensive 10 point review of systems is otherwise negative aside from elements mentioned in the history of present illness. Physical Exam Gen: Morbidly obese, Alert and Oriented, agitated HEENT: PERRL, moist mucous membranes NECK: no meningismus CV: regular rate and regular rhythm PULM: CTAB, no wheezes ABDOMEN: soft, non tender to palpation, BS present BACK: No CVA tenderness NEURO: Neurologically grossly intact EXTREMITIES: Right hand with tenderness to palpation over 4th and 5th MCP joint , 2 cm laceration to palm of right hand, no wrist pain, full range of motion of right hand and wrist, sensation intact to light touch, cap refill less than 2 seconds SKIN: 2 cm superficial laceration to palm of right hand PSYCH: Reports suicidal ideation, denies homicidal ideation, auditory or visual hallucinations. (Maria Elena Dodson) Care assumed at 6:[address] Arthur with plan for mental health evaluation 1120: Recommendation from mental health compliance lead to have patient to residential [facility] withdrawal management, then to [facility] for his mental health issues. (Juan Antonio Bran) Medical Decision Makin-year-old male presents with right hand laceration and suicidal ideations. Patient has been placed on a detainer. U tox is positive for methamphetamines and marijuana. He states he last smoked meth 3 days ago. He is medically cleared for evaluation. Patient will be evaluated in the morning due to positive meth on urine tox. Procedure: Laceration repair. Verbal consent was obtained from the patient. The 3 cm laceration on the palm of right hand was anesthetized using 1% lidocaine with epinephrine. The wound was carefully irrigated by the emergency department strain technician. Next, the wound was prepped and draped in sterile fashion and explored to its base with a gloved finger. There were no deep structures involved. No tendon injury was identified. No vascular injury was identified. No foreign bodies were identified. The wound was repaired with 5.0 Prolene, 5 simple interrupted sutures. The wound repair was simple. The procedure was performed by myself. Tetanus and antibiotic status were addressed. 0000-Report passed on to Dr. Arthur at the end of my shift pending eval. ( Maria Elena Dodson) 6:20 a.m.- The patient has remained stable during my shift. He is to be evaluated by EPS within the hour. (Caroline Arthur) - Objective Vital Signs: Initial Vital Signs Temperature (C) 36.4 C 09/17/16 16:37 Heart Rate 82 09/17/16 16:37 Respiratory Rate 16 09/17/16 16:37 Blood Pressure 166/100 H 09/17/16 16:37 O2 Sat (%) 94 09/17/16 16:37 O2 Delivery Mode Room Air Allergies/Adverse Reactions: No Known Allergies Allergy (Unverified 09/17/16 16:40) Home Medications: Medication Instructions Recorded Cyclobenzaprine [Flexeril] 10 mg PO TIDPRN PRN #12 tab 08/13/16 Medications Given: Discontinued Medications Diphtheria/Tetanus/Acell Pertussis (Boostrix) 0.5 ml IM .ONCE ONE Stop: 09/17/16 19:49 Last Admin: 09/17/16 20:16 Dose: 0.5 ml Nicotine (Nicoderm Cq) 21 mg TD DAILY SCOTT Stop: 03/17/17 08:59 Last Admin: 09/17/16 21:23 Dose: 21 mg Laboratory Results: Laboratory Results 09/17/16 17:21 09/17/16 17:21 Departure - Departure Disposition: Home, Routine, Self-Care Clinical Impression: Polysubstance abuse Hand laceration Qualifiers: Encounter type: initial encounter Foreign body presence: without foreign body Laterality: right Qualified Code(s): S61.411A - Laceration without foreign body of right hand, initial encounter Condition: Good Instructions: Laceration (ED), Polysubstance Abuse (ED) Additional Instructions: Wound Care Follow-Up: Removal of sutures in 10 days. Suture removal is complimentary in uncomplicated cases. Infection or abnormal findings would require reevaluation by the MD. In that case, you may be billed. Referrals: [facility] [Clinic] - As per Instructions
[2016-09-17 17:29] LABS: % IMMATURE GRANULYOCYTES 0.9 % (0.0-1.1); ABSOLUTE IMMATURE GRANULOCYTES 0.09 10^3/uL (0.00-0.10); ADD DIFF? NO; ADD MORPH? NO; ADD SCAN? NO; ATYPICAL LYMPHOCYTE FLAG 20 (0-99); FRAGMENT RBC FLAG 0 (0-99); HEMATOCRIT 47.2 % (40.0-51.0); HEMOGLOBIN 15.9 g/dL (13.7-17.5); LEFT SHIFT FLG 10 (0-99); LIPEMIA HEMOLYSIS FLAG 80 (0-99); MEAN CELL HEMOGLOBIN 30.8 pg (27.9-34.1); MEAN CELL HEMOGLOBIN CONCENTR. 33.7 g/dL (32.4-36.7); MEAN CELL VOLUME 91.3 fL (81.5-99.8); MEAN PLATELET VOLUME 9.7 fL (8.7-11.7); PLATELET CLUMPS FLAG 0 (0-99); PLATELET COUNT 245 10^3/uL (150-400); RED BLOOD CELL COUNT 5.17 10^6/uL (4.40-6.38); RED CELL DISTRIBUTION WIDTH 12.5 % (11.5-15.2)
[2016-09-17 17:51] LABS: ANION GAP 13 mEq/L (8-16); CALCIUM 9.8 mg/dL (8.5-10.4); CARBON DIOXIDE 20 mEq/l (22-31); CHLORIDE 109 mEq/L (97-110); CREATININE 0.8 mg/dL (0.7-1.3); ETHANOL SERUM < 10 mg/dL (0-10); GLOMERULAR FILTRATION RATE > 60; GLUCOSE 79 mg/dL (70-100); POTASSIUM 4.3 mEq/L (3.5-5.2); SODIUM 142 mEq/L (134-144)
[2016-09-17] MEDS ORDERED: TDAP ADULT 0.5 ML INJ (BOOSTRIX) IM ONE (19:48)
[2016-09-17] MEDS ORDERED: NICOTINE 21 MG/24 HR PATCH TD ONE (21:22)
[2016-09-17 23:18] VITALS: O2SAT 95
[2016-09-18 06:42] VITALS: TEMP 97.9
[2016-09-18] MEDS ORDERED: NICOTINE 21 MG/24 HR PATCH TD SCH (09:00)
[2016-09-18 11:39] VITALS: BP 140/90; PULSE 80; RESP 20
== END 2016-09-18 11:39 | disposition home or self-care (01) ==
LOC: EDUNIT#
PROC: 0HQFXZZ Repair Right Hand Skin, External Approach (ICD-10-PCS; principal; 2016-09-17)
DX: S61.411A Laceration without foreign body of right hand, initial encounter (principal); F19.10 Other psychoactive substance abuse, uncomplicated; F17.200 Nicotine dependence, unspecified, uncomplicated; Z23 Encounter for immunization; X78.9XXA Intentional self-harm by unspecified sharp object, initial encounter
CPT/HCPCS: 80305; G0480

== ENCOUNTER 2016-10-15 04:50 | Emergency (ER) | payer MEDICAID ==
[2016-10-15 04:59] VITALS: RESP 18
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
[2016-10-15] MEDS ORDERED: HYDROCODONE/APAP 10/325 TAB PO ONE (05:26)
[2016-10-15] MEDS ORDERED: HYDROCODONE/APAP 5/325 TAB PO ONE (05:44)
[2016-10-15 06:31] VITALS: BP 135/88; PULSE 99; TEMP 98.2; O2SAT 93
== END 2016-10-15 06:31 | disposition home or self-care (01) ==
PROC: 2W39X1Z Immobilization of Left Upper Extremity using Splint (ICD-10-PCS; principal; 2016-10-15)
DX: S42.402A Unspecified fracture of lower end of left humerus, initial encounter for closed fracture (principal); J45.909 Unspecified asthma, uncomplicated; V18.9XXA Unspecified pedal cyclist injured in noncollision transport accident in traffic accident, initial encounter; Y92.410 Unspecified street and highway as the place of occurrence of the external cause; F17.200 Nicotine dependence, unspecified, uncomplicated

== ENCOUNTER 2016-10-20 18:54 | Emergency (ER) | payer MEDICAID ==
--- NOTE | 2016-10-20 19:25 | EDPHY ---
H & P Stated Complaint: Psychiatric visit, suicidal ideation Exam Limitations: No limitations - Medical/Surgical History Hx Asthma: Yes Hx Chronic Respiratory Disease: No Hx Diabetes: No Hx Cardiac Disease: No Hx Renal Disease: No Hx Cirrhosis: No Hx Alcoholism: No Hx HIV/AIDS: No Hx Splenectomy or Spleen Trauma: No Other PMH: PMHx: meth use, scabies, asthma. PSHx: gallbladder - Social History Smoking Status: Current every day smoker HPI/ROS: CHIEF COMPLAINT: Suicidal ideation HISTORY OF PRESENT ILLNESS: Patient arrives with reports of suicidal ideation. He reports feeling suicidal for several days but most specifically today. He felt that he wanted to kill himself by cutting his throat. He says that he has felt very depressed and anxious. He says that he has attempted to kill himself in the past by choking himself and taking pills. He admits to methamphetamine use 5 days ago. Nothing within the past 5 days. He admits to tobacco use and occasional alcohol. He admits to being prescribed a medication for an unknown diagnosis but he has not been taking it. He has 1 previous psychiatric admission due to suicidal ideation. His mother brought him here voluntarily as he did not want the police to be called. No other associated complaints. No modifying factors. PSYCHIATRIC DIAGNOSES: Suicidal attempt. Formal diagnosis unknown PRIOR PSYCHIATRIC EVALUATIONS: Approximately 1-3 months ago in [facility] M1/DETAINER: Dr. Giang at 7:20 p.m. REVIEW OF SYSTEMS: Ten systems reviewed and are negative unless otherwise noted in the HPI EXAMINATION General Appearance: Alert, no distress, unkempt Head: normocephalic, atraumatic Eyes: Pupils equal and round, no conjunctival pallor or injection ENT, Mouth: Mucous membranes moist Neck: Normal inspection, supple, non-tender Respiratory: Lungs are clear to auscultation. No wheezing, rhonchi or crackles Cardiovascular: Regular rate and rhythm. No murmur. Gastrointestinal: Abdomen is soft and nontender Back: non-tender, no bony abnormalities Neurological: GCS 15. A&O, nonfocal, normal gait Skin: Warm and dry, no rash. Multiple tattoos Extremities: Nontender, no pedal edema Psychiatric: Flat affect and depressed mood. Admits to suicidal ideation with thoughts of cutting his own throat. Expresses intent to do so if discharged DIFFERENTIAL DIAGNOSES: Including but not limited to suicidal ideation, homicidal ideation, bipolar, schizophrenia, schizoaffective, substance abuse MDM: 7:25 p.m. Suicidal ideation with plan of cutting his throat or pill ingestion. He admits to feeling this way for several days in planning to hurt himself today. He reports previous suicide attempts and previous inpatient psychiatric care. He is supposed to be on a medication but does not know what it is and does not know why he was supposed to be on it. Patient denies any actual intent to harm self today. His mother brought him in after threatening to call the police. An M1 hold has been completed and he is aware of this. 7:53 p.m. Laboratory studies are all within normal limits. Urine drug screen is negative. He is medically cleared at this time for evaluation. He remains cooperative. 9:30 p.m. Patient is currently being evaluated by [facility]. 9:50 p.m. Notified by [facility] lead caregiverGumaro. Recommends placement for the patient. He will speak with supervisor [employer] and look for placement for inpatient care. SUPERVISION: Patient was evaluated in conjunction with the supervising physician. Please see their note for details. Psychiatric evaluation (Fei Tipton) Constitutional: Initial Vital Signs Temperature (C) 37 C 10/20/16 18:57 Heart Rate 91 10/20/16 18:57 Respiratory Rate 18 10/20/16 18:57 Blood Pressure 136/100 H 10/20/16 18:57 O2 Sat (%) 95 10/20/16 18:57 O2 Delivery Mode Room Air Allergies/Adverse Reactions: No Known Allergies Allergy (Verified 10/20/16 18:56) Home Medications: Medication Instructions Recorded NK [No Known Home Meds] 10/20/16 Medical Decision Making ED Course/Re-evaluation: 2300: Patient signed over to me at 11:00 p.m. shift change from Dr. Giang/ Milka (Reginaldo Hall) 10:45 p.m. the patient has been without incident. Care transferred to Dr. Reginaldo Hall at shift change. (Evaristo Louis) Other Provider: The patient's psychiatric disposition is still pending and will be turned over to Dr. Hall at shift change. (Yoshi Giang) 0700: I took over care of this patient at shift change from Dr. MacDade. Placement pending. (Silas Honeycutt) - Data Points Laboratory Results: Laboratory Results 10/20/16 19:30 10/20/16 19:30 Medications Given: Discontinued Medications Ibuprofen (Motrin) 600 mg PO EDNOW ONE Stop: 10/21/16 15:54 Last Admin: 10/21/16 16:07 Dose: 600 mg Departure - Departure Clinical Impression: Suicidal ideation, Methamphetamine use Condition: Good Referrals: Patient,NotPresent [Primary Care Provider] - As per Instructions
[2016-10-20 19:36] LABS: % IMMATURE GRANULYOCYTES 0.7 % (0.0-1.1); ABSOLUTE IMMATURE GRANULOCYTES 0.06 10^3/uL (0.00-0.10); ADD DIFF? NO; ADD MORPH? NO; ADD SCAN? NO; ATYPICAL LYMPHOCYTE FLAG 20 (0-99); FRAGMENT RBC FLAG 0 (0-99); HEMATOCRIT 46.1 % (40.0-51.0); HEMOGLOBIN 15.1 g/dL (13.7-17.5); LEFT SHIFT FLG 0 (0-99); LIPEMIA HEMOLYSIS FLAG 80 (0-99); MEAN CELL HEMOGLOBIN 30.5 pg (27.9-34.1); MEAN CELL HEMOGLOBIN CONCENTR. 32.8 g/dL (32.4-36.7); MEAN CELL VOLUME 93.1 fL (81.5-99.8); MEAN PLATELET VOLUME 10.1 fL (8.7-11.7); PLATELET CLUMPS FLAG 10 (0-99); PLATELET COUNT 224 10^3/uL (150-400); RED BLOOD CELL COUNT 4.95 10^6/uL (4.40-6.38); RED CELL DISTRIBUTION WIDTH 12.7 % (11.5-15.2)
[2016-10-20 19:49] LABS: ANION GAP 9 mEq/L (8-16); CALCIUM 9.4 mg/dL (8.5-10.4); CARBON DIOXIDE 25 mEq/l (22-31); CHLORIDE 107 mEq/L (97-110); CREATININE 0.8 mg/dL (0.7-1.3); ETHANOL SERUM < 10 mg/dL (0-10); GLOMERULAR FILTRATION RATE > 60; GLUCOSE 116 mg/dL (70-100); POTASSIUM 3.9 mEq/L (3.5-5.2); SALICYLATE < 1.0 mg/dL (2.0-20.0); SODIUM 141 mEq/L (134-144)
[2016-10-21] MEDS ORDERED: IBUPROFEN 600 MG TAB PO ONE (15:53)
[2016-10-22] MEDS ORDERED: IBUPROFEN 600 MG TAB PO ONE (09:10)
[2016-10-22 17:17] VITALS: BP 121/80; PULSE 81; RESP 18; TEMP 97.9; O2SAT 96
== END 2016-10-22 17:17 ==
DX: R45.851 Suicidal ideations (principal); F15.90 Other stimulant use, unspecified, uncomplicated; F17.200 Nicotine dependence, unspecified, uncomplicated; J45.909 Unspecified asthma, uncomplicated
CPT/HCPCS: 80305; G0480

== ENCOUNTER 2016-12-08 11:58 | Emergency (ER) | payer MEDICAID ==
[2016-12-08 12:13] VITALS: RESP 18
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
[2016-12-08] MEDS ORDERED: ONDANSETRON DISINTEGRATING 4 MG TAB PO ONE (13:48)
[2016-12-08] MEDS ORDERED: ONDANSETRON DISINTEGRATING 4 MG TAB ONE (13:48)
[2016-12-08 15:28] VITALS: BP 139/83; PULSE 89; TEMP 98.6; O2SAT 94
== END 2016-12-08 15:25 | disposition home or self-care (01) ==
DX: J11.1 Influenza due to unidentified influenza virus with other respiratory manifestations (principal); J45.909 Unspecified asthma, uncomplicated; F17.200 Nicotine dependence, unspecified, uncomplicated

== ENCOUNTER 2017-01-31 18:23 | Emergency (ER) | payer MEDICAID ==
[2017-01-31 18:28] VITALS: TEMP 98.1
--- NOTE | 2017-01-31 19:01 | EDPHY ---
H & P Time Seen by Provider: 01/31/17 18:51 HPI/ROS: CHIEF COMPLAINT: "I Think I have a leg infection" HISTORY OF PRESENT ILLNESS: 21-year-old homeless male history of methamphetamine use, skin picking, complaining of concerns over left leg skin infection for the past 3 days. No known history of cutaneous MRSA. Tetanus up- to-date. No fever or chills. No chest pain. No dyspnea. No trauma. No abdominal pain. No dyspnea. PRIMARY CARE PROVIDER: REVIEW OF SYSTEMS: A ten point review of systems was performed and is negative with the exception of the items mentioned in the HPI PAST MEDICAL & SURGICAL HISTORY: Methamphetamine use SOCIAL HISTORY: Methamphetamine abuse PHYSICAL EXAM (Prior to examination, patient consented to physical exam, hands were washed and my usual and customary physical exam procedures followed) 1) GENERAL: Well-developed, well-nourished, alert and oriented. Appears to be in no acute distress. 2) HEAD: Normocephalic, atraumatic 3) HEENT: Pupils equal, round, reactive to light bilaterally. Sclera anicteric. 4) NECK: Full range of motion, no meningeal signs. 5) LUNGS: Clear auscultation bilaterally, no wheezes, no rhonchi, no retractions. 6) HEART: Regular rate and rhythm, no murmur, no heave, no gallop. 7) ABDOMEN: No guarding, no rebound, no focal tenderness, negative McBurney's, 8) MUSCULOSKELETAL: Moving all extremities, no focal areas of tenderness, no obvious trauma. No peripheral edema or discoloration. 9) BACK: No CVA tenderness, no midline vertebral tenderness, no fluctuance, no step-off, no obvious trauma, no visual or palpable abnormality. 10) SKIN: On patient's left leg he has multiple tender furuncular lesions with no lymphangitic streaking , soft compartments, no crepitus, no [place] of lesions, lesions do not follow follow a dermatomal distribution, not consistent with zoster. 11) Psychiatric: Patient is oriented X 3, there is no agitation. DIFFERENTIAL DIAGNOSIS: In no particular include but not limited to necrotizing fasciitis, for ankylosis, cellulitis, zoster Smoking Status: Current every day smoker Constitutional: Initial Vital Signs Temperature (C) 36.7 C 01/31/17 18:26 Heart Rate 128 H 01/31/17 18:26 Respiratory Rate 22 H 01/31/17 18:26 Blood Pressure 120/65 01/31/17 18:26 O2 Sat (%) 95 01/31/17 18:26 O2 Delivery Mode Room Air Allergies/Adverse Reactions: No Known Allergies Allergy (Verified 12/08/16 12:10) Home Medications: Medication Instructions Recorded Cephalexin [Keflex] 500 mg PO TID 10 Days cap 01/31/17 Sulfamethox/Tmp 800/160 mg 1 tab PO BID@1000,2200 10 Days tab 01/31/17 [Bactrim Ds] MDM/Departure - MDM ED Course/Re-evaluation: 7:18 p.m.: Patient has been re-evaluated with serial examinations. He is noted to be tachycardic at this time on initial and on repeat evaluation. States last time he used methamphetamine was a few days ago. Does state that prior to come to the ER he drank a large container of combionic energy drink He is currently afebrile, no complaints of chest pain. I recommended further evaluation from the emergency department at this time for his tachycardia and tachypnea. He declines this stating that he would like to leave with his antibiotics. Informed the patient that in my professional opinion, I think he necessitates further evaluation. In my opinion, the patient fully understands the risks to his health and well-being by leaving the emergency department AGAINST MEDICAL ADVICE. By leaving AGAINST MEDICAL ADVICE he has been explained and has verbalized understanding and acceptance of the risks of leaving AGAINST MEDICAL ADVICE, including, but not limited to, , permanent and chronic disability, permanent and chronic loss of income, and other situations and circumstances too numerous to mention herein. I think the patient has the capacity to fully understand these risks. I have offered ample opportunity to answer questions. - Depart Disposition: Home, Routine, Self-Care Clinical Impression: History of methamphetamine abuse, Furuncle of left lower extremity Condition: Good Instructions: Furunculosis and Carbunculosis (ED) Additional Instructions: It was recommended to you that you stay in the emergency department for further evaluation. If you change your mind and would like to have further evaluation you may return to the emergency department at any point. Please take your antibiotics as directed. Prescriptions: Cephalexin [Keflex] 500 mg PO TID 10 Days cap Sulfamethox/Tmp 800/160 mg [Bactrim Ds] 1 tab PO BID@1000,2200 10 Days tab Referrals: [facility],. [Clinic] - 02/03/17
[2017-01-31 19:09] VITALS: BP 123/79; PULSE 115; RESP 20; O2SAT 96
== END 2017-01-31 19:32 | disposition home or self-care (01) ==
DX: L02.426 Furuncle of left lower limb (principal); F17.200 Nicotine dependence, unspecified, uncomplicated; Z87.898 Personal history of other specified conditions

== ENCOUNTER 2017-03-05 15:18 | Inpatient (IN) | payer MEDICAID ==
[2017-03-05] MEDS ORDERED: ACETAMINOPHEN 500 MG TAB PO ONE ×2 (16:07→19:39)
[2017-03-05] MEDS ORDERED: IBUPROFEN 600 MG TAB PO ONE (16:07)
[2017-03-05] MEDS ORDERED: ALBUTEROL 3 ML DEYVIAL IH ONE (16:38)
[2017-03-05] MEDS ORDERED: SODIUM CHLORIDE IV ONE (17:10)
[2017-03-05] MEDS ORDERED: HYDROmorphONE/DILAUDID 1 MG/ML INJ IVP ONE ×2 (17:12→19:36)
--- NOTE | 2017-03-05 17:33 | EDPHY ---
H & P Stated Complaint: left shoulder pain Time Seen by Provider: 03/05/17 15:49 HPI/ROS: CHIEF COMPLAINT: Shoulder and chest pain HISTORY OF PRESENT ILLNESS: The patient is a homeless 21 y/o male with history of asthma and methamphetamine abuse who arrives with his family member complaining of left chest and shoulder pain onset this morning. His pain is worse with palpation and located around the outside of his shoulder and over his left anterior chest. He has an associated fever and shortness of breath. He has some right-sided abdominal pain as well. Family member says he's been sleeping through most of the last day. Denies prior injuries or surgeries of left shoulder. He denies alcohol or IV drug abuse. Family reports that he seemed to have fever, frequent cough, and was breathing rapidly prior to presentation. No palpitations, vomiting, diarrhea, urinary complaints, headache, lightheadedness. REVIEW OF SYSTEMS: Aside from elements discussed in the HPI, a comprehensive 10-point review of systems was reviewed and is negative. PAST MEDICAL HISTORY: Methamphetamine abuse, patient states he smokes methamphetamine, denies IV drug use. Last use 1 week ago per the patient. Also history of asthma, current scabies SOCIAL HISTORY: Family member at bedside. Homeless, lives on the [address], stayed in family member's vehicle last night. Denies IV drug abuse or alcohol use. VITAL SIGNS: Reviewed by me, tachycardic 135, febrile 39.4C, tachypneic 45, 95% on 2lpm O2 GENERAL: Morbidly obese, ill-appearing, uncomfortable, tachypneic, tachycardic, and febrile. Patient is disheveled. HEENT: Atraumatic. Face and cheeks are flushed. Eyes: No icterus, no injection. Mouth: Dry mucous membranes. No erythema or lesions. Neck: supple with no adenopathy. LUNGS: Very diminished throughout, very distant, moving poor air, quite tachypneic. No wheezes, rhonchi or rales. CARDIAC: Tachycardic rate and rhythm, no rubs, murmurs or gallops. CHEST: Tenderness to palpation over left upper anterior chest. ABDOMEN: Soft, obese abdomen, diffuse tenderness, nondistended, bowel sounds normal. BACK: No CVA tenderness. EXTREMITIES: No trauma. No edema. Pain with ROM of left shoulder, otherwise range of motion is normal throughout. NEURO: Alert and oriented, grossly nonfocal. SKIN: Hot and dry, flushed, diffuse scabies rash. No needle tracks. noted. PSYCHIATRIC: Somewhat somnolent but arouses easily to voice. Answers in full questions. Portions of this note were transcribed by a medical reimbursement manager. I personally performed a history, physical exam, medical decision making, and confirmed accuracy of information the transcribed note. - Personal History Current Tetanus/Diphtheria Vaccine: No Current Tetanus Diphtheria and Acellular Pertussis (TDAP): No - Medical/Surgical History Hx Asthma: Yes Hx Chronic Respiratory Disease: No Hx Diabetes: No Hx Cardiac Disease: No Hx Renal Disease: No Hx Cirrhosis: No Hx Alcoholism: No Hx HIV/AIDS: No Hx Splenectomy or Spleen Trauma: No Other PMH: PMHx: meth use, scabies, asthma. PSHx: gallbladder - Social History Smoking Status: Current every day smoker Constitutional: Initial Vital Signs Temperature (C) 37.8 C 03/05/17 15:33 Heart Rate 130 H 03/05/17 15:33 Respiratory Rate 25 H 03/05/17 15:33 Blood Pressure 130/75 H 03/05/17 15:33 O2 Sat (%) 93 03/05/17 15:33 O2 Delivery Mode Nasal Cannula O2 (L/minute) 6 Allergies/Adverse Reactions: No Known Allergies Allergy (Verified 12/08/16 12:10) Home Medications: Medication Instructions Recorded NK [No Known Home Meds] 03/05/17 Medical Decision Making - Diagnostics EKG Interpretation: 12-LEAD EKG: Please see the full report in [facility]. My interpretation: Sinus tachycardia Imaging Results: Imaging Impressions Chest X-Ray 03/05/17 16:05 Impression: 1. Technically, somewhat limited, portable chest; if the patient's condition allows, PA and lateral chest radiography could be considered. 2. Gaseous distention of the stomach with elevation of the left hemidiaphragm and compressive atelectatic changes at the left lung base. 3. Borderline cardiac enlargement. Chest X-Ray 03/05/17 16:51 Impression: Technically limited study secondary to patient body habitus, left lower lobe pneumonia is suspected. Chest CT 03/05/17 18:18 Impression: 1. Left lower lobe pneumonia. 2. Recommend follow up until clear. Findings and recommendations discussed with Emergency Department physician, Flaquita Ibrahim M.D., at 1957 hours, on March 05, 2017. Final report concurs with initial preliminary interpretation. Extremity CT 03/05/17 18:18 Impression: 1. No evidence of left shoulder fracture or dislocation. 2. No evidence of focal abscess, fluid collection, or necrotizing fasciitis. Findings and recommendations discussed with Emergency Department physician, Flaquita Ibrahim M.D., at 1958 hours, on March 05, 2017. Final report concurs with initial preliminary interpretation. Imaging: Discussed imaging studies w/ finance vice president Radiologist, I viewed and interpreted images myself ED Course/Re-evaluation: This is a homeless 21 y/o male who abuses methamphetamine and presents with at least 1-day history of upper left chest wall and left shoulder with shortness of breath and fever. He is tachypneic around 45, tachycardic around 130-140, hot to the touch and febrile at 39.4C, morbidly obese, coughing frequently, and generally ill-appearing. He is tender to light touch over his left upper anterior chest wall and left shoulder, which could represent a cellulitis or possibly early necrotizing fascitis. Plan to manage breathing with nebulizers and will advance to other interventions if needed. IVs established and sepsis labs drawn. Flu swab, UA, EKG, chest x-ray ordered. IV fluids started. 600mg PO ibuprofen, 1000mg PO Tylenol. 1714: Severe sepsis declared due to initial lactate 3.5. WBC 25, tachycardia, and fever. 5,200mL IV NS ordered per sepsis protocol. The 12 lead EKG was interpreted by myself. Sinus tachycardia rate 141. Low voltage. See hard copy and/or "tracemaster" electronic copy for interpretation. Chest x-ray: limited due to obesity. Possible LLL pneumonia. 2nd lactate down to 2.2. AB.35, pCO2 33, PO2 70, 93% saturation on 2 L. 750mg IV Levaquin ordered. 1814: Consulted with Dr. Rodriguez, radiology, regarding appropriate imaging for patient's shoulder. Patient is too broad to fit into the MRI. Plan for chest and left shoulder CTs to better evaluate possible pneumonia and look for gas in his shoulder that could indicate necrotizing fascitis. Chest CT shows left pneumonia by my reading. Awaiting formal reading. Spoke with hospitalist service. Dr. Bingham accepts admission. 1929: Reassessed patient. He was standing with assistance trying to urinate and had increasing respiratory effort. He is now coughing up blood. HR 140, Tachypneic 50. SpO2 98% on 5LPM. 38.8C axillary. RT at bedside performing repeat ABG. He has about 1L left of his ~5L NS bolus. 2gm IV Cefepime ordered. 1949: Reassessed patient. He is moving air better now after several nebs. He has rhonchorous breath sounds throughout. Repeat chest x-ray ordered. 1955: Negative shoulder CT. LLL pneumonia on chest CT. Repeat ABG pH is normal at 7.38. PO2 78, pCO2 diminished to 28. I've spoke with RT and plan to start BiPap therapy here for possible early interstitial edema on repeat portable chest x-ray. 2000: 650mg PO Tylenol administered for fever. Patient's respiratory rate has decreased since placed on BiPap on serial reassessments. Critical care time spent by me, Dr. Ibrahim, exclusively with this patient was 45 minutes, exclusive of PA time and exclusive of procedures. The organ system at risk was respiratory. Time spent in serial assessments of the patient, discussion with patient's family, consideration of respiratory interventions, and review of labs, imaging, and EKG. Differential Diagnosis: Differential diagnoses for the patient's symptom complex was considered including but not limited to respiratory failure, influenza, pneumonia, septicemia, aspiration pneumonia, methamphetamine withdrawal, drug or alcohol abuse, drug or alcohol withdrawal, necrotizing fasciitis. Consult/Admit Bed Type: Dr. Lewis Bingham, step-down - Data Points Laboratory Results: Laboratory Results 03/05/17 18:23 03/05/17 17:15 03/05/17 03/05/17 03/05/17 18:23 17:50 17:15 WBC RBC Hgb POC Hgb Hct 43.9 % % (40.0-51.0) POC Hct MCV MCH MCHC RDW Plt Count MPV Neut % (Auto) Lymph % (Auto) [place] % (Auto) Eos % (Auto) Baso % (Auto) Nucleat RBC Rel Count Absolute Neuts (auto) Absolute Lymphs (auto) Absolute Monos (auto) Absolute Eos (auto) Absolute Basos (auto) Absolute Nucleated RBC Immature Gran % Seg Neutrophils % Band Neutrophils % Lymphocytes % Monocytes % Immature Gran # Absolute Seg Neuts Absolute Band Neuts Absolute Lymphocytes Absolute Monocytes RBC/WBC/PLT Morphology Platelet Estimate ESR 8 MM/HR MM/HR (0-15) PT INR APTT Puncture Site RIGHT RADIAL Patient Temperature 37.0 DEGREES DEGREES pCO2 33 mmHg L mmHg (34-38) pO2 70 mmHg mmHg (65-75) Total CO2 19 mEq/L L mEq/L (23-27) ABG pH 7.35 (7.35-7.45) ABG HCO3 18 mEq/L L mEq/L (22-26) ABG O2 Saturation 93 % % (92-95) ABG Base Excess -6.8 mEq/L L mEq/L (-2.5-2.5) VBG Lactic Acid Total O2 Concentration 2.0 LITERS LITERS POC Sodium Sodium POC Potassium Potassium POC Chloride Chloride Carbon Dioxide Anion Gap POC BUN BUN Creatinine POC Creatinine Estimated GFR Glucose POC Glucose Calcium Total Bilirubin 0.9 mg/dL mg/dL (0.1-1.4) Conjugated Bilirubin 0.5 mg/dL mg/dL (0.0-0.5) Unconjugated Bilirubin 0.4 mg/dL mg/dL (0.0-1.1) AST 39 IU/L IU/L (17-59) ALT 60 IU/L IU/L (21-72) Alkaline Phosphatase 79 IU/L IU/L (38-126) Creatine Kinase 45 IU/L IU/L (0-224) Troponin I C-Reactive Protein 52.8 mg/L H mg/L (<10.0) Total Protein 6.8 g/dL g/dL (6.3-8.2) Albumin 3.9 g/dL g/dL (3.5-5.0) Lipase 20 IU/L L IU/L (23-300) Nasal Influenza A PCR Nasal Influenza B PCR 03/05/17 03/05/17 03/05/17 17:15 17:15 17:15 WBC 25.59 10^3/uL H 10^3/uL (3.80-9.50) RBC 4.69 10^6/uL 10^6/uL (4.40-6.38) Hgb 14.5 g/dL g/dL (13.7-17.5) POC Hgb Hct 43.9 % % (40.0-51.0) POC Hct MCV 93.6 fL fL (81.5-99.8) MCH 30.9 pg pg (27.9-34.1) MCHC 33.0 g/dL g/dL (32.4-36.7) RDW 13.1 % % (11.5-15.2) Plt Count 197 10^3/uL 10^3/uL (150-400) MPV 10.0 fL fL (8.7-11.7) Neut % (Auto) Not Reported Lymph % (Auto) Not Reported [place] % (Auto) Not Reported Eos % (Auto) Not Reported Baso % (Auto) Not Reported Nucleat RBC Rel Count 0.0 % % (0.0-0.2) Absolute Neuts (auto) Not Reported Absolute Lymphs (auto) Not Reported Absolute Monos (auto) Not Reported Absolute Eos (auto) Not Reported Absolute Basos (auto) Not Reported Absolute Nucleated RBC 0.00 10^3/uL 10^3/uL (0-0.01) Immature Gran % Not Reported Seg Neutrophils % 85 % % Band Neutrophils % 10 % % Lymphocytes % 2 % % Monocytes % 3 % % Immature Gran # Not Reported Absolute Seg Neuts 21.75 10^/uL H 10^/uL (1.70-6.50) Absolute Band Neuts 2.56 10^3/uL H 10^3/uL (0.00-0.70) Absolute Lymphocytes 0.51 10^3/uL L 10^3/uL (1.00-3.00) Absolute Monocytes 0.77 10^3/uL 10^3/uL (0.30-0.80) RBC/WBC/PLT Morphology NORMAL (NORMAL) Platelet Estimate ADEQUATE (ADEQ) ESR PT INR APTT Puncture Site Patient Temperature pCO2 pO2 Total CO2 ABG pH ABG HCO3 ABG O2 Saturation ABG Base Excess VBG Lactic Acid 2.2 mmol/L H D mmol/L (0.7-2.1) Total O2 Concentration POC Sodium Sodium POC Potassium Potassium POC Chloride Chloride Carbon Dioxide Anion Gap POC BUN BUN Creatinine POC Creatinine Estimated GFR Glucose POC Glucose Calcium Total Bilirubin Conjugated Bilirubin Unconjugated Bilirubin AST ALT Alkaline Phosphatase Creatine Kinase Troponin I < 0.012 ng/mL ng/mL (0.000-0.034) C-Reactive Protein Total Protein Albumin Lipase Nasal Influenza A PCR Nasal Influenza B PCR 03/05/17 03/05/17 03/05/17 17:15 17:15 16:55 WBC RBC Hgb POC Hgb Hct POC Hct MCV MCH MCHC RDW Plt Count MPV Neut % (Auto) Lymph % (Auto) [place] % (Auto) Eos % (Auto) Baso % (Auto) Nucleat RBC Rel Count Absolute Neuts (auto) Absolute Lymphs (auto) Absolute Monos (auto) Absolute Eos (auto) Absolute Basos (auto) Absolute Nucleated RBC Immature Gran % Seg Neutrophils % Band Neutrophils % Lymphocytes % Monocytes % Immature Gran # Absolute Seg Neuts Absolute Band Neuts Absolute Lymphocytes Absolute Monocytes RBC/WBC/PLT Morphology Platelet Estimate ESR PT 14.5 SEC SEC (12.0-15.0) INR 1.11 (0.83-1.16) APTT 28.1 SEC SEC (23.0-38.0) Puncture Site Patient Temperature pCO2 pO2 Total CO2 ABG pH ABG HCO3 ABG O2 Saturation ABG Base Excess VBG Lactic Acid Total O2 Concentration POC Sodium Sodium 138 mEq/L mEq/L (135-145) POC Potassium Potassium 5.1 mEq/L mEq/L (3.5-5.2) POC Chloride Chloride 104 mEq/L mEq/L (97-110) Carbon Dioxide 19 mEq/l L mEq/l (22-31) Anion Gap 15 mEq/L mEq/L (8-16) POC BUN BUN 11 mg/dL mg/dL (7-23) Creatinine 0.9 mg/dL mg/dL (0.7-1.3) POC Creatinine Estimated GFR > 60 Glucose 103 mg/dL H mg/dL (70-100) POC Glucose Calcium 8.9 mg/dL mg/dL (8.5-10.4) Total Bilirubin 0.9 mg/dL mg/dL (0.1-1.4) Conjugated Bilirubin Unconjugated Bilirubin AST ALT Alkaline Phosphatase Creatine Kinase Troponin I C-Reactive Protein Total Protein Albumin Lipase Nasal Influenza A PCR NEGATIVE FOR FLU A (NEGATIVE) Nasal Influenza B PCR NEGATIVE FOR FLU B (NEGATIVE) 03/05/17 03/05/17 03/05/17 16:49 16:40 16:35 WBC TNP RBC TNP Hgb TNP POC Hgb 15.6 gm/dL gm/dL (13.7-17.5) Hct TNP POC Hct 46 % % (40-51) MCV TNP MCH TNP MCHC TNP RDW TNP Plt Count TNP MPV TNP Neut % (Auto) TNP Lymph % (Auto) TNP [place] % (Auto) TNP Eos % (Auto) TNP Baso % (Auto) TNP Nucleat RBC Rel Count TNP Absolute Neuts (auto) TNP Absolute Lymphs (auto) TNP Absolute Monos (auto) TNP Absolute Eos (auto) TNP Absolute Basos (auto) TNP Absolute Nucleated RBC TNP Immature Gran % TNP Seg Neutrophils % Band Neutrophils % Lymphocytes % Monocytes % Immature Gran # TNP Absolute Seg Neuts Absolute Band Neuts Absolute Lymphocytes Absolute Monocytes RBC/WBC/PLT Morphology Platelet Estimate ESR PT INR APTT Puncture Site Patient Temperature pCO2 pO2 Total CO2 ABG pH ABG HCO3 ABG O2 Saturation ABG Base Excess VBG Lactic Acid 3.5 mmol/L H mmol/L (0.7-2.1) Total O2 Concentration POC Sodium 138 mEq/L mEq/L (135-145) Sodium POC Potassium 4.4 mEq/L mEq/L (3.3-5.0) Potassium POC Chloride 104 mEq/L mEq/L (97-110) Chloride Carbon Dioxide Anion Gap POC BUN 12 mg/dL mg/dL (7-23) BUN Creatinine POC Creatinine 0.8 mg/dL mg/dL (0.7-1.3) Estimated GFR Glucose POC Glucose 107 mg/dL H mg/dL (70-100) Calcium Total Bilirubin Conjugated Bilirubin Unconjugated Bilirubin AST ALT Alkaline Phosphatase Creatine Kinase Troponin I C-Reactive Protein Total Protein Albumin Lipase Nasal Influenza A PCR Nasal Influenza B PCR Microbiology Results: MICROBIOLOGY 03/05/17 17:57 Nasal, Sinus - Swab Respiratory Panel (PCR) - Final No Organism Detected Medications Given: Enoxaparin Sodium (Lovenox) 40 mg SC BID [facility] Stop: 09/01/17 21:14 Last Admin: 03/05/17 21:50 Dose: Not Given Guaifenesin (Mucinex) 600 mg PO BID [facility] Stop: 09/01/17 20:59 Last Admin: 03/05/17 21:10 Dose: 600 mg Azithromycin 500 mg/ Dextrose 255 mls @ 255 mls/hr IV DAILY [facility] PRN Reason: Protocol Stop: 04/04/17 20:59 Last Admin: 03/05/17 21:24 Dose: 255 mls Ceftriaxone Sodium 2 gm/ (Sterile Water) 20 mls @ 300 mls/hr IV DAILY [facility]OTT PRN Reason: Protocol Stop: 04/04/17 20:59 Last Admin: 03/05/17 21:26 Dose: 20 mls Sodium Chloride (Ns) 1,000 mls @ 100 mls/hr IV CONT [facility] Stop: 09/01/17 20:59 Last Admin: 03/05/17 21:12 Dose: 1,000 mls Discontinued Medications Acetaminophen (Tylenol) 1,000 mg PO EDNOW ONE Stop: 03/05/17 16:08 Last Admin: 03/05/17 16:27 Dose: 1,000 mg Acetaminophen (Tylenol) 650 mg PO EDNOW ONE Stop: 03/05/17 19:40 Last Admin: 03/05/17 20:19 Dose: Not Given Acetaminophen (Tylenol) 650 mg PO EDNOW ONE Stop: 03/05/17 20:00 Last Admin: 03/05/17 20:20 Dose: Not Given Albuterol (Proventil Neb) 3 ml IH EDNOW ONE Stop: 03/05/17 16:39 Last Admin: 03/05/17 17:55 Dose: 3 ml Hydromorphone HCl (Dilaudid) 1 mg IVP EDNOW ONE Stop: 03/05/17 17:13 Last Admin: 03/05/17 17:15 Dose: 1 mg Hydromorphone HCl (Dilaudid) 1 mg IVP EDNOW ONE Stop: 03/05/17 19:37 Last Admin: 03/05/17 19:42 Dose: 1 mg Sodium Chloride (Ns) 5,200 mls @ 10,400 mls/hr 30 ml/kg infuse over 30 min ( 5200 ml) IV EDNOW ONE PRN Reason: Protocol Stop: 03/05/17 17:39 Last Admin: 03/05/17 17:10 Dose: 5,200 mls Levofloxacin/Dextrose (Levaquin 750 Mg (Premix)) 150 mls @ 100 mls/hr IV EDNOW ONE PRN Reason: Protocol Stop: 03/05/17 19:26 Last Admin: 03/05/17 18:05 Dose: 150 mls Cefepime HCl 2 gm/ Sterile (Water) 12.5 mls @ 150 mls/hr IV EDNOW ONE PRN Reason: Protocol Stop: 03/05/17 19:42 Last Admin: 03/05/17 20:00 Dose: 12.5 mls Ibuprofen (Motrin) 600 mg PO EDNOW ONE Stop: 03/05/17 16:08 Last Admin: 03/05/17 16:27 Dose: 600 mg Point of Care Test Results: 03/05/17 16:35 POC Sodium 138 POC Potassium 4.4 POC Chloride 104 POC BUN 12 POC Creatinine 0.8 POC Glucose 107 H Departure - Departure Disposition: [facility] Inpatient Acute Clinical Impression: Severe sepsis, Respiratory distress Pneumonia Qualifiers: Pneumonia type: due to unspecified organism Laterality: left Lung location: lower lobe of lung Qualified Code(s): J18.1 - Lobar pneumonia, unspecified organism Left shoulder pain Qualifiers: Chronicity: acute Qualified Code(s): M25.512 - Pain in left shoulder Condition: Serious Report Scribed for: Flaquita Ibrahim Report Scribed by: Karen Bunn Date of Report: 03/05/17 Time of Report: 17:36
[2017-03-05 17:41] LABS: PLATELET COUNT 197 10^3/uL (150-400)
[2017-03-05 17:47] LABS: INR 1.11 (0.83-1.16); PROTIME(PATIENT) 14.5 SEC (12.0-15.0)
--- NOTE | 2017-03-05 18:00 | CPEKG ---
Heart Rate: 141 RR Interval: 426 P-R Interval: 140 QRSD Interval: 88 QT Interval: 276 QTC Interval: 423 P [place]: 72 QRS [place]: 92 T Wave [place]: 18 EKG Severity - BORDERLINE ECG - EKG Impression: SINUS TACHYCARDIA EKG Impression: LOW VOLTAGE WITH RIGHT AXIS DEVIATION Electronically Signed By: Flaquita Ibrahim 05-Mar-2017 20:00:54
[2017-03-05] MEDS ORDERED: IOPAMIDOL (ISOVUE-300) 100 ML BTL ONE (18:28)
[2017-03-05] MEDS ORDERED: CEFEPIME HCL 2 GM in STERILE WATER INJ 12.5 ML IV ONE (19:38)
[2017-03-05] MEDS ORDERED: ACETAMINOPHEN 325 MG TAB ONE (19:46)
[2017-03-05] MEDS ORDERED: ACETAMINOPHEN 325 MG TAB PO ONE (19:59)
[2017-03-05] MEDS ORDERED: ALBUTEROL 3 ML DEYVIAL IH PRN (20:46)
[2017-03-05] MEDS ORDERED: ONDANSETRON DISINTEGRATING 4 MG TAB PO PRN (20:46)
[2017-03-05] MEDS ORDERED: ONDANSETRON 4 MG/2 ML VIAL IVP PRN (20:46)
[2017-03-05] MEDS: guaiFENesin 600 MG TAB.ER PO SCH (21:10)
[2017-03-05] MEDS: NS 1,000 ML IV SCH (21:12)
[2017-03-05] MEDS: AZITHROMYCIN IV 500 MG in D5W 250 ML IV SCH (21:24)
--- NOTE | 2017-03-05 21:24 | GHP ---
[f rep st] HISTORY AND PHYSICAL DATE OF ADMISSION: 03/05/2017 CHIEF COMPLAINT: Shortness of breath. HISTORY OF PRESENT ILLNESS: This is a 21-year-old male who has a history of methamphetamine addictio n. He was in his usual state of health until he woke up this morning with the fairly sudden onset of fevers, chills, and especially left shoulder pleuritic pain. He has a significant cough with green sputum. He is feeling short of breath. He presented to tachypneic and tachycardic. He has had no n ausea/vomiting. REVIEW OF SYSTEMS: A 10-point review of systems was obtained and was negative. PAST MEDICAL HISTORY: Methamphetamine use, previous cellulitis. MEDICATIONS: None. SOCIAL HISTORY: Methamphetamine use. Family is homeless. Living in his car with his mother. FAMILY HISTORY: Reviewed and noncontributory. PHYSICAL EXAM: VITAL SIGNS: Temperature is actually 39.3, blood pressure is 125/56, heart rate in t he 130s, respiratory rate 42, 97% on 4 L. GENERAL: The patient is obese, in moderate respiratory di stress. HEENT: Nonicteric sclerae. Extraocular movements intact. Dry mucous membranes. NECK: Zaman pple. No thyromegaly. LUNGS: Good effort. Actually rhonchi bilaterally, but mostly on the left si de. CARDIOVASCULAR: Tachycardic. No murmurs or gallops. ABDOMEN: Positive bowel sounds. Soft, n ontender, nondistended. No hepatosplenomegaly. EXTREMITIES: No clubbing, cyanosis, or edema. SKIN : Without rash, dry, intact. There is significant tenderness, left shoulder. NEUROLOGIC: Alert an d oriented x3. Moving all 4 extremities equally. PSYCHIATRIC: Normal mood and affect. LABORATORY DATA: White count elevated at 25, hemoglobin 15. Chemistries normal. Negative for flu. Urine tox shows opiates, amphetamine, and marijuana. Blood gas shows a pH of 7.38, pCO2 28, pO2 78. IMAGIN. His chest CT shows left lower lobe pneumonia. 2. Left upper extremity CT shows no fluid collection or fracture. ASSESSMENT AND PLAN: This is a 21-year-old male with pneumonia, sepsis, acute respiratory failure. 1. Left-sided pneumonia. With the sudden onset and the lobar nature of this, I have more suspicion for Streptococcus pneumoniae. We will check an antigen. He has been given Levaquin in the ER, but I would prefer him to be on a beta-lactam since he does not have any allergies. We will start high-do se ceftriaxone, along with the azithromycin. 2. Acute respiratory failure. Although the patient is oxygenating well and his ABG looks okay, he i s tachypneic and could probably tire out and has a higher possibility of tiring out overnight and walter l probably need intubation. We will continue with BiPAP to help support him. 3. Sepsis. The patient has received 5 L of fluid and lactate has been coming down. We will recheck this in the morning. 4. Left-sided shoulder pain. I think this may be referred from his pneumonia. It is pleuritic. 5. Methamphetamine use. /[id number]/MODL
[2017-03-05] MEDS: cefTRIAXone 2 GM in STERILE WATER INJ 20 ML IV SCH (21:26)
[2017-03-05] MEDS: ENOXAPARIN 40 MG/0.4 ML SYR SC SCH (21:50)
[2017-03-06 05:59] LABS: PLATELET COUNT 169 10^3/uL (150-400)
[2017-03-06] MEDS: AZITHROMYCIN IV 500 MG in D5W 250 ML IV SCH (07:57)
[2017-03-06] MEDS: cefTRIAXone 2 GM in STERILE WATER INJ 20 ML IV SCH (07:58)
[2017-03-06] MEDS: guaiFENesin 600 MG TAB.ER PO SCH ×2 (08:00→20:34)
[2017-03-06] MEDS: NS 1,000 ML IV SCH (08:00)
[2017-03-06] MEDS: ENOXAPARIN 40 MG/0.4 ML SYR SC SCH ×2 (08:02→22:40)
[2017-03-06] MEDS: KETOROLAC 30 MG/1 ML SDV IVP PRN ×3 (08:30→22:40)
--- NOTE | 2017-03-06 09:55 | ASMTCASEMG ---
Living Arrangements What is your living Answers: Alone arrangement? Who do you live with? Type Of Residence What kind of residence do Answers: Homeless you live in? Discharge Plan Comments Coordination Status Comments Notes: Patient is a 21yo single male who was admitted for left sided pneumonia, sepsis, and acute respiratory failure. Patient has a hx of methamphetamine addiction. Patient is homeless and reports living in his car with his mother. OT has been ordered. D/C needs TBD. CM will follow. Date Signed: 03/06/2017 09:54 AM Electronically Signed By:Yoon Quiñonez LCSW
--- NOTE | 2017-03-06 12:47 | PDMN ---
Medical Necessity Medical necessity: est los>2mn for PNA, acute resp failure w/tachypnea and higher risk of tiring, probable need of intubation, and sepsis; admit for BiPAP , IVF, IV abx; comorbid meth use, homelessness, hx cellulitis; per order and H& P 03/05/17
[2017-03-06 13:12] LABS: HEPATITIS C ANTIBODY TOTAL NEGATIVE (NEGATIVE); HIV TYPE 1 AND 2 NEGATIVE (NEGATIVE)
[2017-03-06] MEDS: NAPROXEN SODIUM 220 MG TAB PO SCH ×2 (13:47→20:34)
[2017-03-06] MEDS: IPRATROPIUM/ALBUTEROL 3 ML DEYVIAL IH SCH ×3 (14:00→23:21)
--- NOTE | 2017-03-06 17:07 | PCMIDPN ---
Assessment/Plan: Note dictated # Pneumococcal bacteremia and pneumonia: Continue ceftriaxone at 2 g due to patient's body habitus at 179 kilos. Repeat blood cultures after 48 hr of antibiotics. Respiratory PCR negative for influenza # Left shoulder pain CT shows no joint effusion continue to monitor, may have to attempt joint aspiration versus further imaging with MRI if pain persists. # polysubstance abuse but no IV drug use. Objective: Vital Signs Temp Pulse Resp BP Pulse Ox 36.7 C 98 24 H 156/80 H 96 03/06/17 16:00 03/06/17 16:00 03/06/17 16:00 03/06/17 16:00 03/06/17 16:00 Microbiology 03/05/17 19:39 - Final Sputum, Expectorated Laboratory Results 03/06/17 05:29 03/06/17 05:29 03/05/17 03/06/17 03/07/17 05:59 05:59 05:59 Intake Total 6139 Output Total 550 300 Balance 5589 -300 ESR 8 MM/HR (0-15) 03/05/17 18:23 C-Reactive Protein 52.8 mg/L (<10.0) H 03/05/17 17:15 ICD10 Worksheet Patient Problems: Problems Problem Status Onset Left shoulder pain Acute Pneumonia Acute Respiratory distress Acute Severe sepsis Acute Acute bronchitis Acute Acute pharyngitis Acute
--- NOTE | 2017-03-06 17:41 | HOSPPROG ---
Hospitalist Progress Note Assessment/Plan: Assessment: 21-year-old male presents with severe sepsis in the setting of pneumococcal bacteremia and pneumonia with acute hypoxic respiratory failure Plan: 1. Severe sepsis. POA. Evidenced by sepsis-2 criteria including tachycardia, tachypnea, fever, severe leukocytosis, evidence of end-organ failure notably lactic acidosis, respiratory failure, in the setting of infection, demonstrating autonomic dysregulation in the setting of infection -status post 6 L of IV fluid per sepsis protocol -empiric IV antibiotics -continue monitor vital signs, white blood cell count 2. Strep Pneumococcal bacteremia. POA. Secondary to pneumonia, initial blood cultures positive -high-dose IV ceftriaxone -repeat blood cultures after 48 hr of antibiotics -appreciate ID consult 3. Suspected strep pneumococcal pneumonia. POA. Left upper lobe on chest imaging, personally interpreted -IV antibiotics -supportive care -ongoing productive cough -get HIV test, verbal consent obtained 4. Metabolic acidosis. Acute, secondary to lactic acid, secondary to end- organ failure in the setting of severe sepsis -respond IV fluids and treatment for sepsis 5. Acute hypoxemic respiratory failure. Evidenced by visibly labored breathing and tachypnea with respiratory rate of greater than 40 despite being on supplemental oxygen, requiring BiPAP therapy and pulse oximeter monitors was respiratory treatments in the step-down unit -continue DuoNeb treatments -continue treatment for pneumonia -weaned to supplemental oxygen 6. Polysubstance abuse. Get HIV test as noted above, monitor for signs of amphetamine withdrawal which include lethargy 7. Acute left shoulder pain. New problem, further workup indicated. CT demonstrating no evidence of effusion, patient is experiencing significant pain full active and passive range of motion on exam as well as tenderness to palpation over the left sub a.c. bursa -discussed with Dr. Norma Silveira, we agreed to hold on aspiration at this time given that no effusion was noted on CT, may get MRI if not clinically improving -although he is at risk for septic arthritis, he is also at risk for reactive arthritis in the setting of infection and we will initiate scheduled nonsteroidal anti-inflammatory medications and gauge effect Diet. Regular Prophylaxis. High risk patient, Lovenox 40 Code. Full Disposition. Anticipated discharge uncertain this time, patient requiring ongoing workup and treatment. Subjective: Ongoing left shoulder pain, barely able to move his left shoulder, coughing up sputum Objective: Vital Signs Temp Pulse Resp BP Pulse Ox 36.7 C 98 24 H 156/80 H 96 01/18/18 16:00 03/06/17 16:00 03/06/17 16:00 03/06/17 16:00 03/06/17 16:00 Microbiology 03/05/17 19:39 - Final Sputum, Expectorated Laboratory Results 03/06/17 05:29 03/06/17 05:29 03/05/17 03/06/17 03/07/17 05:59 05:59 05:59 Intake Total 6139 1180 Output Total 550 700 Balance 5589 480 PT 14.5 SEC (12.0-15.0) 03/05/17 17:15 INR 1.11 (0.83-1.16) 03/05/17 17:15 - Physical Exam Constitutional: no apparent distress, obese, uncomfortable, No not in pain ( Moderate and left shoulder) Cardiovascular: tachycardia, No systolic murmur, No irregularly irregular, No edema Respiratory: expiratory wheeze, rhonchi (Left lateral lung), No reduced air movement, No bronchial breath sounds Gastrointestinal: normoactive bowel sounds, soft, non-tender abdomen, no palpable masses, No distension Musculoskeletal: other (Painful range of motion in left upper extremity with active and passive full flexion and abduction to 90 degrees, tenderness over the left sub a.c.) Neurologic: AAOx3, sensation intact bilaterally, No weakness (Motor strength 5/ 5 bilateral hand) Psychiatric: interacting appropriately, not anxious, not encephalopathic, thought process linear ICD10 Worksheet Patient Problems: Problems Problem Status Onset Left shoulder pain Acute Pneumonia Acute Respiratory distress Acute Severe sepsis Acute Acute bronchitis Acute Acute pharyngitis Acute
--- NOTE | 2017-03-06 20:13 | GCON ---
[f rep st] CONSULTATION INFECTIOUS DISEASE CONSULTATION REFERRING PHYSICIAN: Alistair Banda MD REASON FOR CONSULTATION: Pneumococcal pneumonia and bacteremia. HISTORY OF PRESENT ILLNESS: A 21-year-old male with a history of asthma and methamphetamine abuse who has been homeless for 5 years. He was in his usual state of health until 2 days prior to presentation when he developed night sweats, pleuritic left-sided chest pain and subsequently developed shortness of breath, and presented to the emergency room for evaluation. In the emergency room, patient was found to be febrile to 39.4, tachypneic, tachycardic and hypoxic. Evaluation revealed left lower lobe pneumonia and blood culture very rapidly positive for Streptococcus pneumoniae. Patient was admitted to the hospital and given a dose of azithromycin, cefepime and levofloxacin. Subsequently was started on ceftriaxone 2 g IV daily. Overnight, patient reports minimal improvement in his left-sided pleuritic chest pain and remains intermittently diaphoretic. He denies any associated abdominal pain, diarrhea, weight loss, rash, headache or dental complaints. REVIEW OF SYSTEMS: A complete 10-point review of systems was performed and is negative except as mentioned in the HPI or here. Left shoulder pain PAST MEDICAL HISTORY: 1. History of pneumonia annually. 2. Polysubstance abuse : Smokes methamphetamine. Snorts cocaine. No IV drug use. SOCIAL HISTORY: The patient is homeless x5 years. No IV drug use. Occasional alcohol. He is sexually active with women, but reports condom use. He grew up in [facility]. 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 FAMILY HISTORY: The patient does not know his family history due to the fact he "does not ask." MEDS: A serum Ativan as needed, albuterol, ceftriaxone 2 g IV daily, started , Lovenox, Mucinex, Toradol, Naprosyn, Zofran. PHYSICAL EXAMINATION: VITAL SIGNS: Blood pressure 103/83, heart rate 102, respiratory rate is 22, saturation 98% on 3 L. Temperature 36.7. GENERAL: This is a pleasant, obese male, lying in bed. In no acute distress. HEENT: Very poor dentition with significant gingivitis. Slightly dry mucous membranes. No oral ulcerations or exudates. NECK: Supple. CARDIOVASCULAR: Tachycardic. Regular rate. LUNGS: Difficult due to body habitus, but decreased breath sounds in the left base. No wheezes. ABDOMEN: Morbidly obese , soft, nontender. Bowel sounds are present. EXTREMITIES: No clubbing, cyanosis or edema. : No Trevizo. SKIN: Patient had scattered excoriations, but no rash. LABORATORY: White count 22,000. Hematocrit 39, platelets of 169, 65% neutrophils, 25% bands. Creatinine 0.7, AST 25, ALT 56, alkaline phosphatase 60 , albumin 3.1. Glucose is 104. For left shoulder pain, patient underwent a CT scan that showed no dislocation or fracture. Chest CT showed a left lower lobe infiltrate corroborated in chest x-ray. Blood cultures: 1 of 2 with Streptococcal pneumoniae. A respiratory panel PCR was negative. Sputum culture is pending. Urine culture is pending. ASSESSMENT AND PLAN: This is a 21-year-old male who is homeless with sudden onset of fevers, shortness of breath, left-sided chest pain. Subsequently found to have left lower lobe pneumonia with corresponding bacteremia with pneumococcus. The patient has had some measures of clinical improvement overnight with decreasing heart rate and improving blood pressure. # Pneumococcal bacteremia and pneumonia # Left shoulder pain CT shows no joint effusion # polysubstance abuse but no IV drug use. RECOMMENDATIONS: 1. Continue ceftriaxone. 2 g is a reasonable dose in this morbidly obese male with a weight of 179 kg. 2. We will await susceptibilities of pneumococcus with hopes of eventually being able to transition to oral levofloxacin for completing his therapy. 3. Would provide an HIV, HCV screen in light of drug use. This was explained to patient at the bedside. 4. Continue to monitor L shoulder pain, may have to attempt joint aspiration versus further imaging with MRI if pain persists. Thank you for this consultation. We will continue to follow on a daily basis. /[id number]/MODL MTDD
[2017-03-06] MEDS: ACETAMINOPHEN 500 MG TAB PO PRN (20:34)
[2017-03-07 04:51] LABS: PLATELET COUNT 152 10^3/uL (150-400)
[2017-03-07] MEDS: IPRATROPIUM/ALBUTEROL 3 ML DEYVIAL IH SCH ×4 (05:39→22:29)
[2017-03-07] MEDS: NAPROXEN SODIUM 220 MG TAB PO SCH ×2 (09:06→21:01)
[2017-03-07] MEDS: guaiFENesin 600 MG TAB.ER PO SCH ×2 (09:06→21:00)
[2017-03-07] MEDS: ENOXAPARIN 40 MG/0.4 ML SYR SC SCH ×2 (09:08→21:35)
[2017-03-07] MEDS: cefTRIAXone 2 GM in STERILE WATER INJ 20 ML IV SCH (09:58)
--- NOTE | 2017-03-07 16:45 | ASMTCMCOM ---
CM Note CM Note Notes: CM met w/ pt for dispo planning. CM completed CAGE assessment. Pt reports that he has been sober for a week. Pt reports that AA and NA is not helpful. CM provided pt w/ mental health and substance abuse resources. Pt indicated that hanging out w/ sober friends help keep him sober. Pt reports that he hopes to cut back on his substance use. CM available for d/c needs. Plan: Independent Date Signed: 03/07/2017 04:44 PM Electronically Signed By:AYSE Alfaro
--- NOTE | 2017-03-07 16:45 | ASMTCAGE ---
CAGE Do you feel you ought to Answers: Yes cut down on your drinking or drug use? Do people annoy you by Answers: No criticizing your drinking or drug use? Do you feel guilty about Answers: No your drinking or drug use? Do you drink or use drugs Answers: Yes first thing in the morning ([employer])? Date Signed: 03/07/2017 04:45 PM Electronically Signed By:AYSE Alfaro
--- NOTE | 2017-03-07 18:37 | HOSPPROG ---
Hospitalist Progress Note Assessment/Plan: Assessment: 21-year-old male presents with severe sepsis in the setting of pneumococcal bacteremia and pneumonia with acute hypoxic respiratory failure Plan: 1. Severe sepsis. POA, resolved 2. Strep Pneumococcal bacteremia. POA, secondary to pneumonia, initial blood cultures positive -cont high-dose IV ceftriaxone -repeat blood cultures tomorrow AM, monitor for clearance -appreciate ID consult, given patient's hx of hard-drugs, would consider monitored setting of IV abx 3. Suspected strep pneumococcal pneumonia. POA, left upper lobe on chest imaging -IV antibiotics -supportive care -ongoing productive cough -HIV neg 4. Metabolic acidosis. Acute, secondary to lactic acid, secondary to end- organ failure in the setting of severe sepsis -respond IV fluids and treatment for sepsis 5. Acute hypoxemic respiratory failure. Initially on BiPAP, resolved 6. Polysubstance abuse. HIV/HCV neg 7. Acute left shoulder pain. Likely reactive arthritis in setting of infxn, CT w/o effusion, substantially improved today s/p tx for infxn -no indication for further imaging -cont PRN Rx, NSAIDs Diet. Regular Prophylaxis. High risk patient, Lovenox 40 Code. Full Disposition. Anticipated discharge 03/09, pending clearance of BCx Subjective: improved ROM L shoulder, wants to drink regular Pepsi Objective: Vital Signs Temp Pulse Resp BP Pulse Ox 36.9 C 102 H 19 105/87 H 95 03/07/17 16:00 03/07/17 16:00 03/07/17 16:00 03/07/17 16:00 03/07/17 16:00 Microbiology 03/05/17 19:25 Urine Culture - Final Urine,Clean Catch Five Or More [place] Types 03/05/17 19:39 - Final Sputum, Expectorated Sputum Culture - Final Laboratory Results 03/07/17 04:20 03/07/17 04:20 03/06/17 03/07/17 03/08/17 05:59 05:59 05:59 Intake Total 6139 1680 700 Output Total 550 700 700 Balance 5589 980 0 PT 14.5 SEC (12.0-15.0) 03/05/17 17:15 INR 1.11 (0.83-1.16) 03/05/17 17:15 - Physical Exam Constitutional: no apparent distress, not in pain, obese, No uncomfortable Cardiovascular: regular rate and rhythym, no murmur, rub, or gallop, No edema Respiratory: rhonchi (on insp YAW), No expiratory wheeze, No bronchial breath sounds, No respiratory distress Gastrointestinal: normoactive bowel sounds, soft, non-tender abdomen, no palpable masses, No distension Musculoskeletal: other (active ROM up to 90 degrees L shoulder w/ improved rotational movement) Neurologic: AAOx3, sensation intact bilaterally, No weakness Psychiatric: interacting appropriately, not anxious, not encephalopathic, thought process linear ICD10 Worksheet Patient Problems: Problems Problem Status Onset Acute bronchitis Acute Acute pharyngitis Acute Pneumonia Acute Severe sepsis Acute Respiratory distress Acute Left shoulder pain Acute
[2017-03-07] MEDS: NICOTINE 14 MG/24 HR PATCH TD SCH (21:00)
--- NOTE | 2017-03-07 23:00 | PCMIDPN ---
Assessment/Plan: Assessment: streptococcus pneumoniae bacteremia and L lung infiltrate. L shoulder pain probably referred phrenic pain. Patient gradually improving. Plan to continue his ceftriaxone therapy and follow his expected clinical improvement. Patient is homeless and when discharged will be going back to living outdoors. Plan: 1. Continue IV ceftriaxone. Probably expect to private branch exchange service adviser to Levaquin upon discharge to complete a 14 day course. 2. Follow clinical improvement. Expect another 48-72 hours. 03/07/17 22:57 03/07/17 22:58 Subjective: Patient is resting in bed. Feels weak. No other new issues. Still coughing - productive of sputum. Still with L shoulder pain. Objective: ceftriaxone # 3 Vital Signs Temp Pulse Resp BP Pulse Ox 36.9 C 83 16 105/87 H 96 03/07/17 16:00 03/07/17 22:33 03/07/17 22:33 03/07/17 16:00 03/07/17 22:33 Microbiology 03/05/17 19:25 Urine Culture - Final Urine,Clean Catch Five Or More [place] Types 03/05/17 19:39 - Final Sputum, Expectorated Sputum Culture - Final Laboratory Results 03/07/17 04:20 03/07/17 04:20 03/06/17 03/07/17 03/08/17 05:59 05:59 05:59 Intake Total 6139 1680 700 Output Total 550 700 700 Balance 5589 980 0 ESR 8 MM/HR (0-15) 03/05/17 18:23 C-Reactive Protein 52.8 mg/L (<10.0) H 03/05/17 17:15 - Physical Exam General Appearance: WD/WN, alert, obese, toxic (mildly) Respiratory: crackles, No lungs clear, No respiratory distress, No wheezing Cardiac/Chest: regular rate, rhythm, No tachycardia Extremities: non-tender, normal inspection Skin: normal color, warm/dry, No rash Neuro/Psych: alert, normal mood/affect, oriented x 3 ICD10 Worksheet Patient Problems: Problems Problem Status Onset Left shoulder pain Acute Pneumonia Acute Respiratory distress Acute Severe sepsis Acute Acute bronchitis Acute Acute pharyngitis Acute
[2017-03-08 05:11] LABS: PLATELET COUNT 205 10^3/uL (150-400)
[2017-03-08] MEDS: IPRATROPIUM/ALBUTEROL 3 ML DEYVIAL IH SCH ×4 (06:05→23:52)
--- NOTE | 2017-03-08 08:19 | PCMIDPN ---
Assessment/Plan: Assessment/Plan: 1. Pneumococcal bacteremia with Left pneumonia: - Currently on IV ceftriaxone. - sensitivities reviewed. -f/u blood cx frm 03/07/17 pending - CXR, CT images reviewed. -wbc improved, LFT stable, creatinine stable. - influenza studies negative -neg HIV, HCV 2. Polysubstance abuse Meds Ceftriaxone 2g daily- 03/05/17 Subjective: AFebrile. breathing without assistance of o2. mostly dry cough at present. denies sob. denies abd pain or diarrhea, rash. no other complaints. Objective: Vital Signs Temp Pulse Resp BP Pulse Ox 36.7 C 89 16 146/83 H 94 03/08/17 07:48 03/08/17 07:48 03/08/17 07:48 03/08/17 07:48 03/08/17 07:48 Microbiology 03/05/17 19:25 Urine Culture - Final Urine,Clean Catch Five Or More [place] Types 03/05/17 19:39 - Final Sputum, Expectorated Sputum Culture - Final Laboratory Results 03/08/17 04:20 03/07/17 04:20 03/07/17 03/08/17 03/09/17 05:59 05:59 05:59 Intake Total 1680 700 Output Total 700 700 Balance 980 0 ESR 8 MM/HR (0-15) 03/05/17 18:23 C-Reactive Protein 52.8 mg/L (<10.0) H 03/05/17 17:15 - Physical Exam General Appearance: alert, no apparent distress EENT: No thrush Respiratory: coarse breath sounds (left lung) Cardiac/Chest: regular rate, rhythm Extremities: No swelling Abdomen: normal bowel sounds, non-tender, soft, other (obese), No distended Skin: No erythema ICD10 Worksheet Patient Problems: Problems Problem Status Onset Left shoulder pain Acute Pneumonia Acute Respiratory distress Acute Severe sepsis Acute Acute bronchitis Acute Acute pharyngitis Acute
[2017-03-08] MEDS: guaiFENesin 600 MG TAB.ER PO SCH ×2 (08:51→19:27)
[2017-03-08] MEDS: NAPROXEN SODIUM 220 MG TAB PO SCH ×2 (08:52→19:27)
[2017-03-08] MEDS: NICOTINE 14 MG/24 HR PATCH TD SCH ×2 (08:52→19:27)
[2017-03-08] MEDS: ENOXAPARIN 40 MG/0.4 ML SYR SC SCH ×2 (08:53→19:45)
[2017-03-08] MEDS: ACETAMINOPHEN 500 MG TAB PO PRN (08:53)
[2017-03-08] MEDS: KETOROLAC 30 MG/1 ML SDV IVP PRN (09:26)
[2017-03-08] MEDS: cefTRIAXone 2 GM in STERILE WATER INJ 20 ML IV SCH (09:26)
--- NOTE | 2017-03-08 14:44 | HOSPPROG ---
Hospitalist Progress Note Assessment/Plan: Hospitalist Progress Note Assessment/Plan: Assessment: 21-year-old male presents with severe sepsis in the setting of pneumococcal bacteremia and pneumonia with acute hypoxic respiratory failure. First encounter ,chart reviewed. D/W CM. Plan: 1. Severe sepsis. POA, resolved 2. Strep Pneumococcal bacteremia. POA, secondary to pneumonia, initial blood cultures positive -cont high-dose IV ceftriaxone -repeat blood cultures tomorrow AM, monitor for clearance -appreciate ID consult, given patient's hx of hard-drugs, would consider monitored setting of IV abx 3. Suspected strep pneumococcal pneumonia. POA, left upper lobe on chest imaging -IV antibiotics -supportive care -ongoing productive cough -HIV neg 4. Metabolic acidosis. Acute, secondary to lactic acid, secondary to end- organ failure in the setting of severe sepsis -respond IV fluids and treatment for sepsis 5. Acute hypoxemic respiratory failure. Initially on BiPAP, resolved 6. Polysubstance abuse. HIV/HCV neg 7. Acute left shoulder pain. Likely reactive arthritis in setting of infxn, CT w/o effusion, substantially improved today s/p tx for infxn -no indication for further imaging -cont PRN Rx, NSAIDs 8. Morbid obesity. BMI 45+, increases risk of worsening morbidity 9. Homeless reviewed situation with pt Diet. Regular Prophylaxis. High risk patient, Lovenox 40 Code. Full Disposition. Anticipated discharge 03/09, pending clearance of BCx Subjective: Feeling better. Still coughing. Tired. Objective: Vital Signs Temp Pulse Resp BP Pulse Ox 36.7 C 89 16 146/83 H 94 03/08/17 07:48 03/08/17 07:48 03/08/17 07:48 03/08/17 07:48 03/08/17 07:48 Microbiology 03/05/17 19:25 Urine Culture - Final Urine,Clean Catch Five Or More [place] Types 03/05/17 19:39 - Final Sputum, Expectorated Sputum Culture - Final Laboratory Results 03/08/17 04:20 03/07/17 04:20 03/07/17 03/08/17 03/09/17 05:59 05:59 05:59 Intake Total 1680 700 250 Output Total 700 700 Balance 980 0 250 PT 14.5 SEC (12.0-15.0) 03/05/17 17:15 INR 1.11 (0.83-1.16) 03/05/17 17:15 - Physical Exam Constitutional: no apparent distress, appears nourished, obese Eyes: PERRL, anicteric sclera, EOMI Ears, Nose, Mouth, Throat: moist mucous membranes, hearing normal, ears appear normal Cardiovascular: No JVD, No tachycardia, No edema Respiratory: no respiratory distress, no rales or rhonchi, reduced air movement Gastrointestinal: normoactive bowel sounds, No tenderness, No ascites Skin: warm, normal color, No erythema Musculoskeletal: normal joint ROM, no joint effusions, generalized weakness Neurologic: AAOx3 Psychiatric: interacting appropriately, not anxious, not encephalopathic ICD10 Worksheet Patient Problems: Problems Problem Status Onset Acute bronchitis Acute Acute pharyngitis Acute Pneumonia Acute Severe sepsis Acute Respiratory distress Acute Left shoulder pain Acute
[2017-03-09 05:21] LABS: PLATELET COUNT 241 10^3/uL (150-400)
[2017-03-09] MEDS: IPRATROPIUM/ALBUTEROL 3 ML DEYVIAL IH SCH ×2 (06:34→11:11)
[2017-03-09 08:50] VITALS: BP 145/80; TEMP 97.9
[2017-03-09] MEDS: KETOROLAC 30 MG/1 ML SDV IVP PRN (09:21)
[2017-03-09] MEDS: cefTRIAXone 2 GM in STERILE WATER INJ 20 ML IV SCH (09:21)
[2017-03-09] MEDS: guaiFENesin 600 MG TAB.ER PO SCH (09:26)
[2017-03-09] MEDS: NAPROXEN SODIUM 220 MG TAB PO SCH (09:27)
[2017-03-09] MEDS: ENOXAPARIN 40 MG/0.4 ML SYR SC SCH (09:27)
--- NOTE | 2017-03-09 09:37 | PCMIDPN ---
Assessment/Plan: Assessment/Plan: 1. Pneumococcal bacteremia with Left pneumonia: - Currently on IV ceftriaxone. Will change to oral levaquin. - sensitivities reviewed. -f/u blood cx from 03/07/17 ngtd - CXR, CT images reviewed. -wbc noted. LFT stable, creatinine stable. - influenza studies negative -neg HIV, HCV - plan for 14 days of therapy. Currently on D#3. - Patient will stay with his Mom whenever he gets out of hospital -f/u in office with Dr. Silveira in 7-10 days. 2. Polysubstance abuse Meds Ceftriaxone 2g daily- 03/05/17 Subjective: afebrile. feels well. denies sob. not on o2. dry cough. walked hallways without sob on exertion. denies abd pain or diarrhea. Objective: Vital Signs Temp Pulse Resp BP Pulse Ox 36.6 C 91 14 145/80 H 93 03/09/17 08:47 03/09/17 08:47 03/09/17 08:47 03/09/17 08:47 03/09/17 08:47 Laboratory Results 03/09/17 04:37 03/07/17 04:20 03/08/17 03/09/17 03/10/17 05:59 05:59 05:59 Intake Total 700 750 Output Total 700 Balance 0 750 ESR 8 MM/HR (0-15) 03/05/17 18:23 C-Reactive Protein 52.8 mg/L (<10.0) H 03/05/17 17:15 - Physical Exam General Appearance: alert, no apparent distress Respiratory: coarse breath sounds (left ) Cardiac/Chest: regular rate, rhythm Extremities: No swelling Abdomen: normal bowel sounds, non-tender, soft, No distended Skin: No erythema ICD10 Worksheet Patient Problems: Problems Problem Status Onset Left shoulder pain Acute Pneumonia Acute Respiratory distress Acute Severe sepsis Acute Acute bronchitis Acute Acute pharyngitis Acute
[2017-03-09 11:20] VITALS: PULSE 89; RESP 16; O2SAT 94
--- NOTE | 2017-03-09 13:28 | GDS ---
[f rep st] DISCHARGE SUMMARY DISCHARGE DIAGNOSES: 1. Pneumococcal bacteremia. 2. Pneumonia. 3. History of polysubstance abuse. 4. Morbid obesity. 5. Homelessness. 6. Severe sepsis. 7. Metabolic acidosis. 8. Acute hypoxemic respiratory failure. CONSULTATIONS: Infectious Disease. STUDIES AND PROCEDURES DONE: CT of the chest. PHYSICAL EXAM: GENERAL: The patient is alert. VITAL SIGNS: Afebrile 36.6, pulse is 91, respirator y rate is 14, blood pressure is 145/80. He is saturating 94% on room air. I have seen and evaluated the patient on the day of discharge. HOSPITAL COURSE: The patient is a 21-year-old male, who presented to the emergency room with complai nts of shortness of breath. He was evaluated and diagnosed with. 1. Severe sepsis. During this hospitalization, he received fluid resuscitation. His sepsis has com pletely resolved. 2. Streptococcus pneumoniae bacteremia. This is felt to be secondary to pneumonia. He was treated with IV Rocephin during this hospital course. Blood cultures have cleared, and he received a consult ation from Infectious Disease. He will be transitioned to oral Levaquin to follow up with further an tibiotic therapy in the outpatient setting. 3. Streptococcus pneumoniae pneumonia. This is resolving. Will continue antibiotic therapy in the outpatient setting. 4. Metabolic acidosis secondary to acute infection and has resolved. 5. Acute hypoxemic respiratory failure in the setting of pneumonia. It has resolved. He is saturat ing appropriately on room air. 6. Morbid obesity. The patient has received counseling. 7. Polysubstance abuse. His HIV, as well as hepatitis C, are negative during this hospitalization. Drug counseling has been provided. 8. Disposition. Patient is homeless. He will be discharged with his mother. He has been offered r esources that are available to him. There are no pending studies. DISCHARGE MEDICATIONS: Please refer to EMR form. I have provided him a prescription for Levaquin 75 0 mg daily, #10. Follow up will be with his primary care provider at [facility], as well as Dr. Norma Silveira of Infectious Disease sometime between March 17 and March 20. I spent greater than 35 minutes in the care, coordination, and management of this patient's dispositi on. /[id number]/MODL
--- NOTE | 2017-03-09 15:58 | ASDISCHSUM ---
Discharge Information Plan Status:Home with No Needs Medically Cleared to Leave:03/08/2017 Discharge Date:03/09/2017 12:57 PM CM D/C Disposition:Home, Routine, Self-Care ADT D/C Disposition:Home, Routine, Self-Care Projected Discharge Date:03/09/2017 12:00 AM Transportation at D/C:Friend Discharge Delay Reason: Follow-Up Date:03/09/2017 12:00 AM Discharge Slot: Final Diagnosis:Sepsis, PNA, Strep, L shoulder pain Placement Information Patient Contact Information Contact Name:MELY Relationship:Mother Address: Work Phone: City: [facility] Phone: State/[place] Code: Email: Financial Information Financial Class: Primary Plan Desc:[employer]ICA[employer] FIRST [employer] NUR Primary Plan Number:[id number] Secondary Plan Desc: Secondary Plan Number: Assessment Information [facility] Initial CM Assessment Living Arrangements What is your living Answers: Alone arrangement? Who do you live with? Type Of Residence What kind of residence do Answers: Homeless you live in? Discharge Plan Comments Coordination Status Comments Notes: Patient is a 21yo single male who was admitted for left sided pneumonia, sepsis, and acute respiratory failure. Patient has a hx of methamphetamine addiction. Patient is homeless and reports living in his car with his mother. OT has been ordered. D/C needs TBD. CM will follow. Date Signed: 03/06/2017 09:54 AM Electronically Signed By:Yoon Quiñonez LCSW [facility] CM Progress Note CM Note CM Note Notes: CM met w/ pt for dispo planning. CM completed CAGE assessment. Pt reports that he has been sober for a week. Pt reports that AA and NA is not helpful. CM provided pt w/ mental health and substance abuse resources. Pt indicated that hanging out w/ sober friends help keep him sober. Pt reports that he hopes to cut back on his substance use. CM available for d/c needs. Plan: Independent Date Signed: 03/07/2017 04:44 PM Electronically Signed By:AYSE Alfaro CAGE Questionnaire CAGE Do you feel you ought to Answers: Yes cut down on your drinking or drug use? Do people annoy you by Answers: No criticizing your drinking or drug use? Do you feel guilty about Answers: No your drinking or drug use? Do you drink or use drugs Answers: Yes first thing in the morning ([employer])? Date Signed: 03/07/2017 04:45 PM Electronically Signed By:AYSE Alfaro Case Management Discharge Plan Note Case Management Discharge Discharge Order Complete? Answers: Yes Patient to Obtain Answers: Independently Medications Transportation Arranged Answers: Family/Friends Transport will Pick (Date 03/09/2017 12:00 AM & Time) Discharge Comments Notes: Patient has been discharged. Medications called into [facility] on . Patient given $ for medication costs. Friend to transport. Date Signed: 03/09/2017 11:43 AM Electronically Signed By:Rufina Luz LCSW Intervention Information
== END 2017-03-09 12:57 | disposition home or self-care (01) | DRG 871 ==
LOC: F2N 20:45 → F3N 03-06 20:18
PROVIDERS: ADMIT Internal Medicine; ATTEND Internal Medicine
DX: A40.3 Sepsis due to Streptococcus pneumoniae (principal); R65.20 Severe sepsis without septic shock; J13 Pneumonia due to Streptococcus pneumoniae; J96.01 Acute respiratory failure with hypoxia; E66.01 Morbid (severe) obesity due to excess calories; Z68.42 Body mass index [BMI] 45.0-49.9, adult; F15.10 Other stimulant abuse, uncomplicated; F14.90 Cocaine use, unspecified, uncomplicated; F17.210 Nicotine dependence, cigarettes, uncomplicated; J45.909 Unspecified asthma, uncomplicated; Z59.0 Homelessness
CPT/HCPCS: 80305; 82947-QW; 96374; 97165-GO; G0472; J0456; J0692; J0696; J1170; J1650; J1885; J1956; J7613; Q9967

== ENCOUNTER 2017-05-06 01:15 | Emergency (ER) | payer MEDICAID ==
[~2017-05-06 01:15] MED LIST: CEPHALEXIN 500 MG CAP PO SCH; SULFAMETHOX/TMP 800/160 MG 1 TAB PO SCH
[2017-05-06 01:21] VITALS: BP 130/98; PULSE 108; RESP 20; TEMP 97.7; O2SAT 98
--- NOTE | 2017-05-06 01:27 | EDPHY ---
H & P Stated Complaint: "cold" & skin infection Time Seen by Provider: 05/06/17 01:26 HPI/ROS: HPI The patient presents with right arm pain which has been present for the last 1 week. It began when he picked a pimple on his arm and then developed redness and pain. The pain is been constant, moderate in severity, and worse when he applies pressure to his arm. He has not had any fevers. He denies any prior history of similar. He was recently incarcerated last week. He has not had any treatment for this. He also complains of being very cold. Last night, he was out in the snow and he feels that he cannot warm up his body since then. He sat in front of her heater for 3 hr today, however was not improved so he comes into the emergency department. Is homeless and has no place to stay. REVIEW OF SYSTEMS Constitutional: No fever, no chills. Eyes: No discharge. ENT: No sore throat. Cardiovascular: No chest pain, no palpitations. Respiratory: No cough, no shortness of breath. Gastrointestinal: No abdominal pain, no vomiting. Genitourinary: No hematuria. Musculoskeletal: No back pain. Skin: Positive for rashes. Neurological: No headache. PMHx: History of pneumonia, admitted to the hospital in February of this year Soc Hx: Methamphetamine abuse, homelessness PHYSICAL General Appearance: Alert, no distress Eyes: Pupils equal and round no pallor or injection ENT, Mouth: Mucous membranes moist Respiratory: There are no retractions, lungs are clear to auscultation Cardiovascular: Regular rate and rhythm Gastrointestinal: Abdomen is soft and non-tender, no masses, bowel sounds normal Neurological: A&O, moves all extremities Skin: Warm and dry, right arm with erythema on the posterior surface from elbow to mid forearm, this is slightly warm and tender to palpation Musculoskeletal: Neck is supple non tender Extremities: symmetrical, full range of motion Psychiatric: Patient is oriented X 3, there is no agitation Source: Patient Exam Limitations: No limitations - Personal History Current Tetanus/Diphtheria Vaccine: Unsure Current Tetanus Diphtheria and Acellular Pertussis (TDAP): Unsure - Medical/Surgical History Hx Asthma: Yes Hx Chronic Respiratory Disease: No Hx Diabetes: No Hx Cardiac Disease: No Hx Renal Disease: No Hx Cirrhosis: No Hx Alcoholism: No Hx HIV/AIDS: No Hx Splenectomy or Spleen Trauma: No Other PMH: PMHx: meth use, scabies, asthma. PSHx: gallbladder - Social History Smoking Status: Current every day smoker Constitutional: Initial Vital Signs Temperature (C) 36.5 C 05/06/17 01:20 Heart Rate 108 H 05/06/17 01:20 Respiratory Rate 20 05/06/17 01:20 Blood Pressure 130/98 H 05/06/17 01:20 O2 Sat (%) 98 05/06/17 01:20 O2 Delivery Mode Room Air Allergies/Adverse Reactions: No Known Allergies Allergy (Verified 12/08/16 12:10) Home Medications: Medication Instructions Recorded Acetaminophen [Tylenol ES 500 mg 500 - 1,000 mg PO Q6HRS PRN tab 03/09/17 (*)] Naproxen Sodium [Aleve 220 MG (*)] 440 mg PO BID tab 03/09/17 Nicotine [Nicoderm Cq 14 mg (*)] 14 mg TD DAILY patch 03/09/17 levOFLOXACIN [levAQUIN (*)] 750 mg PO DAILY AT 10AM #10 tab 03/09/17 Cephalexin [Keflex (*)] 500 mg PO Q6H #28 cap 05/06/17 Sulfamethox/Tmp 800/160 mg 1 tab PO BID #14 tab 05/06/17 [Bactrim Ds] Medical Decision Making Differential Diagnosis: This is a 22-year-old homeless male with history of methamphetamine abuse and recent incarceration who presents because he is feeling cold and he also has a right arm rash. His oral temperature is normal here. He does not have any indication of frostbite. His right arm appears to have a cellulitis, nidus of infection could be pimple that he reports popping on his arm. He does not appear systemically ill with fever, nausea or vomiting. I do not see any fluid collections concerning for abscesses. In the emergency department, patient was given information on shelters. I have put in a referral for case management for the morning. He was given prescriptions for Keflex and Bactrim for presumed cellulitis of his arm. These were issued via the [facility] program. Departure - Departure Disposition: Home, Routine, Self-Care Clinical Impression: Cellulitis of right arm Condition: Good Instructions: Cephalexin (By mouth), Sulfamethoxazole/Trimethoprim (By mouth), Cellulitis (ED) Additional Instructions: Please take the antibiotic as prescribed. You should return to the emergency department if your worse in any way. I have put in a referral for you for our medical case worker are and hopefully she will be calling you in the morning. Referrals: [facility],. [Clinic] - As per Instructions Prescriptions: Cephalexin [Keflex (*)] 500 mg PO Q6H #28 cap Sulfamethox/Tmp 800/160 mg [Bactrim Ds] 1 tab PO BID #14 tab
[2017-05-06] MEDS ORDERED: SULFAMET/TMP DS PREPACK#2 BTL TAKEHOME ONE (01:40)
[2017-05-06] MEDS ORDERED: CEPHALEXIN 500MG PREPACK#4 BTL TAKEHOME ONE (01:40)
[2017-05-06] MEDS ORDERED: CEPHALEXIN 500 MG CAP PO ONE (01:40)
[2017-05-06] MEDS ORDERED: SULFAMETHOX/TMP 800/160 MG 1 TAB PO ONE (01:40)
== END 2017-05-06 02:25 | disposition home or self-care (01) ==
DX: L03.113 Cellulitis of right upper limb (principal); J45.909 Unspecified asthma, uncomplicated; F17.200 Nicotine dependence, unspecified, uncomplicated

== ENCOUNTER 2017-09-16 10:43 | Emergency (ER) | payer MEDICAID ==
[2017-09-16 10:49] VITALS: BP 111/71
--- NOTE | 2017-09-16 10:51 | EDPHY ---
H & P Stated Complaint: R hand blister Time Seen by Provider: 09/16/17 10:50 HPI/ROS: HPI: This is a 22-year-old male who presents with Chief Complaint: Right hand blister Location: Right hand Quality: Blister Duration: 2 days Signs and Symptoms: No bleeding, no radiation, no numbness, no weakness, no tingling, no incontinence, no decreased range of motion, no swelling, + pain, no fever Timing: Acute Severity: [id number] Context: Patient is right-hand dominant, presents with 2-3 day history of a blister on his right hand that has since popped and remains open. He reports that is painful to industrial hygenist things in the area as it is sensitive to touch the open blister. He reports that he was using a machete to cut wood and this caused a blister approximately 2-3 days ago. He denies any skin color changes, drainage , radiation, weakness. Wash the area with soap and water. Tetanus is up-to- date Modifying Factors: See above Comment: ROS: see HPI Constitutional: No fever, no chills, no weight loss Eyes: No blurred vision Respiratory: No shortness of breath, no cough Cardiovascular: No chest pain Gastrointestinal: No nausea, no vomiting no diarrhea Genitourinary: No dysuria Extremities: No myalgias Neurologic: No weakness, no numbness Skin: No rashes Hematologic: No bruising, no bleeding MEDICAL/SURGICAL/SOCIAL HISTORY: PMHx: meth use, scabies, asthma PSHx: gallbladder Social history: unemployed CONSTITUTIONAL: Young adult white male, awake and alert, no obvious distress HEENT: Atraumatic and normocephalic, PERRL, EOMI. Nares patent; no rhinorrhea; no nasal mucosal edema. Tympanic membranes clear. Oropharynx clear, no exudate and moist pink mucosa. Airway patent. No lymphadenopathy. No meningismus. Cardiovascular: Normal S1/S2, regular rate, regular rhythm, without murmur rub or gallop. PULMONARY/CHEST: Symmetrical and nontender. Clear to auscultation bilaterally. Good air movement. No accessory muscle usage. ABDOMEN: Soft, nondistended, nontender, no rebound, no guarding, no peritoneal signs, no masses or organomegaly. No CVAT. EXTREMITIES: 2/2 pulses, strength 5/5, no deformities, no clubbing, no cyanosis or edema. NEUROLOGICAL: no focal neuro deficits. GCS 15. SKIN: Warm and dry, 1 in annular open blister at that has granulation tissue on the palm of his right hand near the base of his thumb; no erythema, no discharge. no rash. Good capillary refill. Source: Patient Exam Limitations: No limitations - Personal History Current Tetanus/Diphtheria Vaccine: Yes Current Tetanus Diphtheria and Acellular Pertussis (TDAP): Yes - Medical/Surgical History Hx Asthma: Yes Hx Chronic Respiratory Disease: No Hx Diabetes: No Hx Cardiac Disease: No Hx Renal Disease: No Hx Cirrhosis: No Hx Alcoholism: No Hx HIV/AIDS: No Hx Splenectomy or Spleen Trauma: No Other PMH: PMHx: meth use, scabies, asthma. PSHx: gallbladder - Social History Smoking Status: Current every day smoker Constitutional: Initial Vital Signs Temperature (C) 36.4 C 09/16/17 10:47 Heart Rate 65 09/16/17 10:47 Respiratory Rate 16 09/16/17 10:47 Blood Pressure 111/71 09/16/17 10:47 O2 Sat (%) 92 09/16/17 10:47 O2 Delivery Mode Room Air Allergies/Adverse Reactions: No Known Allergies Allergy (Verified 09/16/17 10:46) Home Medications: Medication Instructions Recorded Cephalexin [Keflex (*)] 500 mg PO TID #15 cap 09/16/17 Medical Decision Making ED Course/Re-evaluation: Area clean with soap and water bacitracin clean sterile dressing applied. No signs of neurovascular compromise/tenting of skin/compartment syndrome/ extremities and joints examined above and below area of concern and are neurovascularly intact/cellulitis/abscess. Patient given a prescription for Keflex to prevent secondary infection as well as written and verbal wound care instructions. Tetanus is up-to-date. This patient was seen under the supervision of my secondary supervising physician. I evaluated care for this patient independently. Discussed this patient with Dr. Louis. Differential Diagnosis: Differential diagnosis includes but is not limited to blister, friction burn, cellulitis. Departure - Departure Disposition: Home, Routine, Self-Care Condition: Good Instructions: Blister (ED) Additional Instructions: Keep the dressing dry and in place for 48 hours. After 48 hours, you may remove the dressing; wash the site daily with mild soap and water; then pat dry. Take Tylenol 650 mg every 4 hours and/or Ibuprofen 600 mg every 8 hours with food as needed for pain. Take Keflex 3 times a day as directed x5 days. Return to the ER immediately if you experience redness, red streaks, have fevers /chills, flu like symptoms, limited range of motion, or any other symptoms that concern you. Referrals: [facility],. [Clinic] - As per Instructions Prescriptions: Cephalexin [Keflex (*)] 500 mg PO TID #15 cap
[2017-09-16] MEDS ORDERED: TDAP ADULT 0.5 ML INJ (BOOSTRIX) IM ONE (11:19)
== END 2017-09-16 11:33 | disposition home or self-care (01) ==
DX: S60.521A Blister (nonthermal) of right hand, initial encounter (principal); F17.200 Nicotine dependence, unspecified, uncomplicated; Z23 Encounter for immunization

== ENCOUNTER 2018-04-30 11:55 | Emergency (ER) | payer MEDICAID ==
--- NOTE | 2018-04-30 12:28 | EDPHY ---
H & P Time Seen by Provider: 04/30/18 12:08 HPI/ROS: CHIEF COMPLAINT: Fall, knee pain HISTORY OF PRESENT ILLNESS: 23-year-old homeless male presents to the emergency department by ambulance after he had a mechanical fall after slipping on ice injuring his left knee. He states that he fell directly onto his left knee just prior to arrival. He did not hit his head or lose consciousness. Denies neck or back pain. Denies abdominal pain. Denies any other trauma or injury. He states he is unable to bear any weight secondary to pain. REVIEW OF SYSTEMS: Constitutional: No fever, no chills. Eyes: No double or blurry vision. ENT: No sore throat. Respiratory: No cough, no shortness of breath. Cardiac: No chest pain. Gastrointestinal: No abdominal pain, vomiting or diarrhea. Genitourinary: No dysuria. Musculoskeletal: No neck or back pain. Skin: No rashes. Neurological: No headache. Past Medical/Surgical History: Negative Social History: Homeless from [place] Smoking Status: Current every day smoker Physical Exam: General Appearance: Initial examination the patient is sleeping, no distress. No visible signs of trauma to his head. Eyes: Pupils equal and round. Extraocular motions are all intact. ENT: Mouth: Mucous membranes moist. Respiratory: No wheezing, rhonchi, or rales, lungs are clear to auscultation. Cardiovascular: Regular rate and rhythm. Gastrointestinal: Abdomen is soft and nontender, no masses, no rebound or guarding, bowel sounds normal. Neurological: Alert and oriented x 3, cranial nerves II through XII grossly intact Skin: Warm and dry, no rashes. Musculoskeletal: Nontender to palpate along cervical, thoracic or lumbar spine. Neck is supple. Extremities: Diffusely tender to palpate along the left anterior aspect of the knee. There is no redness or ecchymosis noted. No swelling. The patient is unable to lift his left leg actively secondary to pain. He is able to flex however to at least 90 degrees. Very superficial abrasion noted to the left anterior aspect of the knee. Full range of motion of his left ankle. No pain with palpation over the left hip. Gait is not tested due to pain. Psychiatric: Patient is oriented X 3, there is no agitation. Constitutional: Initial Vital Signs Temperature (C) 36.4 C 04/30/18 12:04 Heart Rate 73 04/30/18 12:04 Respiratory Rate 18 04/30/18 12:04 Blood Pressure 139/74 H 04/30/18 12:04 O2 Sat (%) 97 04/30/18 12:04 O2 Delivery Mode Room Air Allergies/Adverse Reactions: No Known Allergies Allergy (Verified 04/30/18 12:03) Home Medications: Medication Instructions Recorded Albuterol 04/30/18 Medical Decision Making - Diagnostics Imaging Results: Imaging Impressions Knee X-Ray 04/30/18 12:18 Impression: No definite fracture or dislocation of the left knee. Imaging: I viewed and interpreted images myself ED Course/Re-evaluation: 23-year-old male presents after mechanical fall injuring his left knee. X-rays reveal no fractures. The patient declined knee immobilizer and crutches. She was given orthopedic referral and will follow up in 1 week. Told to return to the emergency department sooner if he has any other concerns. Differential Diagnosis: Including but not limited to fracture, dislocation, contusion, sprain, soft tissue injury - Data Points Medications Given: Discontinued Medications Ibuprofen (Motrin) 600 mg PO EDNOW ONE Stop: 04/30/18 13:22 Last Admin: 04/30/18 13:31 Dose: 600 mg Departure - Departure Disposition: Home, Routine, Self-Care Clinical Impression: Contusion of left knee Qualifiers: Encounter type: initial encounter Qualified Code(s): S80.02XA - Contusion of left knee, initial encounter Condition: Good Instructions: Contusion in Adults (ED), Knee Pain (ED) Additional Instructions: Weightbear as tolerated. Ibuprofen 600 mg every 8 hr as needed for pain. Ice and elevate to help reduce swelling. Follow up with orthopedic surgeon in 1 week to recheck. Referrals: Bharath Diaz MD [Medical Doctor] - 5-7 days, call for appt. (Orthopedic surgeon on-call)
[2018-04-30] MEDS ORDERED: IBUPROFEN 600 MG TAB PO ONE (13:21)
[2018-04-30 13:35] VITALS: BP 141/78
== END 2018-04-30 13:34 | disposition home or self-care (01) ==
LOC: EDUNIT#
DX: S80.02XA Contusion of left knee, initial encounter (principal); W00.9XXA Unspecified fall due to ice and snow, initial encounter; Y92.9 Unspecified place or not applicable; Y93.9 Activity, unspecified; Y99.9 Unspecified external cause status

== ENCOUNTER 2018-05-07 20:40 | Emergency (ER) | payer MEDICAID ==
[2018-05-07] MEDS ORDERED: OLANZapine DISINTEGR 5 MG TAB PO ONE (21:44)
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
[2018-05-07 22:34] LABS: PLATELET COUNT 282 10^3/uL (150-400)
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
--- NOTE | 2018-05-07 23:48 | ASMTLCPROG ---
Notes Note: Notes: Pt was informed he would be going to a dual dx inpatient tx and this keno writer attempted to read pt rights, however, he was too sedated to participate or sign. This keno writer made a copy of rights at 23:30 and placed the originals and copy on pt's chart. Date Signed: 05/07/2018 11:47 PM Electronically Signed By:Marge Fishman
--- NOTE | 2018-05-08 10:28 | ASMTTCLDSP ---
TLC Discharge Disposition Disposition: Answers: Discharge Disposition Notes: Notes: Accepeted for transfer admission to [facility] under Dr. Esvin Bains for daul diagnosis treatment, recommended last evening by [facility] on-call psychiatrist, Dr. Susan Rodríguez. Discharge Concerns/Recommendations: Notes: In consultation with [facility] ED provider, Akin Yap MD, and on-call psychiatrist, Susan Rodríguez MD, both concurred that pt appears to meet 27-65 criteria requiring psychiatric hospitalization as pt appears to be an imminent risk of harm to self due to a mental illness condition. Was patient given the Answers: Not applicable Inpatient Behavioral Health Prohibited Belongings List while in the ED? Type of Hold: Answers: M1/72-hour Hold Hold initiated by: Answers: ED Physician For Transfers, Accepting [facility] Facility: For Transfers, Accepting Esvin Bains MD Psychiatrist: For Transfers, Reason Dr. Susan Rodríguez supportted placing at dual Patient is Being diagnosis facility. Transferred: Date Signed: 05/08/2018 10:28 AM Electronically Signed By:Colt Chávez
[2018-05-08 12:17] VITALS: BP 129/80
== END 2018-05-08 12:17 ==
DX: R45.851 Suicidal ideations (principal); T14.91XA Suicide attempt, initial encounter; F41.8 Other specified anxiety disorders; Z59.0 Homelessness; F15.921 Other stimulant use, unspecified with intoxication delirium
CPT/HCPCS: 80305; G0480

== ENCOUNTER 2018-06-11 23:20 | Emergency (ER) | payer MEDICAID ==
[2018-06-11] MEDS ORDERED: TDAP ADULT 0.5 ML INJ (BOOSTRIX) IM ONE (23:49)
== END 2018-06-12 00:28 ==
DX: S80.212A Abrasion, left knee, initial encounter (principal); W22.8XXA Striking against or struck by other objects, initial encounter; Y35.813A Legal intervention involving manhandling, suspect injured, initial encounter; S82.002D Unspecified fracture of left patella, subsequent encounter for closed fracture with routine healing; F17.200 Nicotine dependence, unspecified, uncomplicated; J45.909 Unspecified asthma, uncomplicated; Z23 Encounter for immunization